=== PATIENT | male | born 1945 | race Caucasian/White ===

== ENCOUNTER 2018-04-04 11:45 | Inpatient (IN) | payer MEDICARE, MEDICAID ==
--- NOTE | 2018-04-04 12:13 | ED Physician Chart ---
ED Chief Complaint/HPI - Patient Information Date Seen:: 04/04/18 Time Seen:: 11:55 Chief Complaint:: scrotal swelling History of Present Illness:: Patient's had scrotal swelling for last 3 months. No nausea, vomiting, diarrhea , abdominal pain. Allergies:: Allergies Allergy/AdvReac Type Severity Reaction Status Date / Time No Known Allergies Allergy Verified 04/04/18 11:57 Vitals:: Vital Signs - 8 hr 04/04/18 11:57 Temp 98.1 F HR 82 RR 16 BP 130/96 O2 Sat % 95 Historian:: Patient, EMS Review:: Transfer documents Reviewed ED Review of Systems - Review of Systems General/Constitutional: No fever, No chills, No weight loss, No weakness, No diaphoresis, No edema, No loss of appetite Skin: No skin lesions, No rash, No bruising Head: No headache, No light-headedness Eyes: No loss of vision, No pain, No diplopia ENT: No earache, No nasal drainage, No sore throat, No tinnitus Neck: No neck pain, No swelling, No thyromegaly, No stiffness, No mass noted Cardio Vascular: No chest pain, No palpitations, No PND, No orthopnea, No edema Pulmonary: No SOB, No cough, No sputum, No wheezing GI: No nausea, No vomiting, No diarrhea, No pain, No melena, No hematochezia, No constipation, No hematemesis G/U: No dysuria, No frequency, No hematuria, Other (scrotal swelling) Musculoskeletal: No bone or joint pain, No back pain, No muscle pain Endocrine: No polyuria, No polydipsia Psychiatric: No prior psych history, No depression, No anxiety, No suicidal ideation Hematopoietic: No bruising, No lymphadenopathy Allergic/Immuno: No urticaria, No angioedema Neurological: No syncope, No focal symptoms, No weakness, No paresthesia, No headache, No seizure, No dizziness, No confusion, No vertigo ED Past Medical History - Past Medical History Past Medical History: Arthritis, Other (right hip pain; cellulitis left leg) Family History: Other (unavailable) Social History: Care Facility, Other (formerly smoked cigarettes in consumed alcohol) Surgical History: other (left knee and right hip) Psychiatricy History: None Medication: Reviewed Family Medical History - Family Member Mother History Unknown: Yes ED Physical Exam - Physical Examination General/Constitutional: Well-developed, well-nourished, Alert, No distress Head: Atraumatic Eyes: Lids, conjuctiva normal, PERRL, EOMI Skin: Nl inspection, No rash, No skin lesions, No ecchymosis, Well hydrated, No lymphadenopathy ENMT: External ears, nose nl, Nasal exam nl Other ENMT comments:: Edentulous Neck: Nontender, Full ROM w/o pain, No JVD, No nuchal rigidity, No bruit, No mass, No stridor Respiratory: Nl effort/Exclusion, Clear to Auscultation, No Wheeze/Rhonchi/Rales Cardio Vascular: RRR, No murmur, gallop, rubs, NL S1 S2 GI: No tenderness/rebounding/guarding, No organomegaly, No hernia, Normal BS's, Nondistended, No mass/bruits, No McBurney tenderness : No CVA tenderness Other comments:: Large incarcerated right inguinal hernia with intestine in right hemiscrotum Extremities: No tenderness or effusion, Full ROM, normal strength in all extremities, No edema, Normal digits & nails Other Extremities comments:: Long vertical scar anterior both knees Neuro/Psych: Alert/oriented, No focal deficits Misc: Normal back, No paraspinal tenderness ED Labs/Radiology/EKG Results - Lab Results Results: Laboratory Results - last 24 hr 04/04/18 04/04/18 04/04/18 12:28 12:28 12:28 WBC 4.8 RBC 4.78 Hgb 15.0 Hct 43.0 MCV 90.0 MCH 31.4 H MCHC Differential 34.9 RDW 13.5 Plt Count 144 L MPV 7.7 Neutrophils % 71.4 Lymphocytes % 16.2 L Monocytes % 10.1 H Eosinophils % 1.5 Basophils % 0.8 PT 11.6 H INR 1.11 PTT (Actin FS) 26.6 Sodium 129 L Potassium 4.0 Chloride 98 Carbon Dioxide 24.8 Anion Gap 10.2 BUN 14 Creatinine 0.5 L Est GFR ( Amer) > 60.0 Est GFR (Non-Af Amer) > 60.0 BUN/Creatinine Ratio 28.0 Glucose 104 Calcium 9.1 Urine Source Urine Color Urine Clarity Urine pH Ur Specific [place] Urine Protein Urine Glucose (UA) Urine Ketones Urine Blood Urine Nitrate Urine Bilirubin Urine Urobilinogen Ur Leukocyte Esterase Urine WBC Ur Epithelial Cells Amorphous Sediment Urine Bacteria 04/04/18 12:28 WBC RBC Hgb Hct MCV MCH MCHC Differential RDW Plt Count MPV Neutrophils % Lymphocytes % Monocytes % Eosinophils % Basophils % PT INR PTT (Actin FS) Sodium Potassium Chloride Carbon Dioxide Anion Gap BUN Creatinine Est GFR ( Amer) Est GFR (Non-Af Amer) BUN/Creatinine Ratio Glucose Calcium Urine Source RANDOM Urine Color YELLOW Urine Clarity CLEAR Urine pH 7.5 Ur Specific [place] 1.015 Urine Protein NEGATIVE Urine Glucose (UA) NEGATIVE Urine Ketones NEGATIVE Urine Blood NEGATIVE Urine Nitrate NEGATIVE Urine Bilirubin NEGATIVE Urine Urobilinogen 0.2 Ur Leukocyte Esterase NEGATIVE Urine WBC 0-2 Ur Epithelial Cells OCCASIONAL Amorphous Sediment FEW PHOSPHATES Urine Bacteria OCCASIONAL - Radiology Results Results: CXR showed calcification of the aortic arch and was otherwise normal. ED Septic Shock - . Is Septic Shock (SBP<90, OR Lactate>4 mmol\L) present?: No - <6hrs of presentation: Vital Signs: Vital Signs - 8 hr 04/04/18 11:57 Temp 98.1 F HR 82 RR 16 BP 130/96 O2 Sat % 95 ED Reassessment (Disposition) - Reassessment Reassessment Condition:: Unchanged - Diagnosis Diagnosis:: Incarcerated right inguinal hernia; arthritis - Patient Disposition Spoke to:: Pranav Guzman Admitting Medical Physician:: Pranav Guzman Condition at Disposition:: Stable, Unchanged
[2018-04-04 12:34] LABS: URINE MICROSCOPIC INDICATED? YES; URINE SOURCE RANDOM
[2018-04-04 12:37] LABS: URINE BILIRUBIN NEGATIVE (NEGATIVE); URINE BLOOD NEGATIVE (NEGATIVE); URINE GLUCOSE (UA) NEGATIVE (NEGATIVE); URINE KETONE NEGATIVE (NEGATIVE); URINE LEUKOCYTE ESTERASE NEGATIVE (NEGATIVE); URINE NITRATE NEGATIVE (NEGATIVE); URINE PH 7.5 (4.6 - 8.0); URINE PROTEIN NEGATIVE (NEGATIVE); URINE UROBILINOGEN 0.2 E.U./dL (0.2 - 1.0)
[2018-04-04 12:38] LABS: URINE CLARITY CLEAR (CLEAR); URINE COLOR YELLOW
[2018-04-04 12:42] LABS: % BASOPHILS 0.8 % (0.0-2.0); % EOSINOPHILS 1.5 % (0.0-5.0); % LYMPHOCYTES 16.2 % (20.0-50.0); % MONOCYTES 10.1 % (2.0-10.0); % NEUTROPHILS 71.4 % (40.0-80.0); EOSINOPHILE ABSOLUTE 0.1 Th/cmm (0.1-0.4); LYMPHOCYTE ABSOLUTE 0.8 Th/cmm (1.5-3.0); MEAN CORPUSCULAR HEMOGLOBIN 31.4 pg (27.0-31.0); MEAN CORPUSCULAR HGB CONC 34.9 pg (28.0-36.0); MEAN PLATELET VOLUME 7.7 fl; MONOCYTE ABSOLUTE 0.5 Th/cmm (0.3-1.0); NEUTROPHILE ABSOLUTE 3.4 Th/cmm (1.8-8.0); PLATELET COUNT 144 Th/cmm (150-400); RED BLOOD COUNT 4.78 Mil/cmm (3.80-5.80); RED CELL DISTRIBUTION WIDTH 13.5 % (11.5-20.0); WHITE BLOOD COUNT 4.8 Th/cmm (4.8-10.8)
[2018-04-04 12:49] LABS: INR 1.11 (0.5-1.4); PROTHROMBIN TIME (TEST) 11.6 SECONDS (9.5-11.5)
[2018-04-04 12:53] LABS: ANION GAP 10.2 (7.0-16.0); BUN - UREA NITROGEN 14 mg/dL (7-25); CALCIUM SERUM 9.1 mg/dL (8.6-10.3); CARBON DIOXIDE 24.8 mEq/L (21.0-31.0); CHLORIDE 98 mEq/L (98-107); CREATININE - SERUM 0.5 mg/dL (0.7-1.3); GFR AFRICAN-AMERICAN > 60.0 ml/min (>90); GFR NON AFRICAN-AMERICAN > 60.0 ml/min; GLUCOSE 104 mg/dL (70-105); SODIUM SERUM 129 mEq/L (136-145)
[2018-04-04 12:57] LABS: URINE BACTERIA OCCASIONAL /hpf (NONE SEEN); URINE EPITHELIAL CELLS OCCASIONAL /lpf (FEW); URINE WBC 0-2 /hpf (0-5)
[2018-04-04 12:58] LABS: URINE AMORPHOUS SEDIMENT FEW PHOSPHATES (NONE SEEN)
--- NOTE | 2018-04-04 13:18 | Diagnostic Imaging Report ---
CHEST X-RAY: AP view INDICATION: Chest pain, preop COMPARISON: None FINDINGS: Low lung volumes are seen with mild chronic lung changes. There is no focal consolidation or pleural effusions The heart is normal in size. Mildly tortuous aorta is noted with atherosclerosis. There may be a hiatal hernia. Degenerative changes of the spine are noted with scoliosis. IMPRESSION: Chronic lung changes with no focal consolidation identified Mildly tortuous aorta with atherosclerosis. Possible hiatal hernia. If indicated further testing may be performed.
[2018-04-04] MEDS ORDERED: Morphine Sulfate 4 mg/mL 1mL Syr IM PRN ×2 (14:30→14:32)
[2018-04-04] MEDS: D5-0.45NS 1,000 ML IV SCH (14:52)
[2018-04-04] MEDS ORDERED: Morphine Sulfate 4 mg/mL 1mL Syr IVP PRN ×2 (16:34)
[2018-04-04] MEDS: cefTRIAXone 1 GM in Sodium Chloride 0.9% 50 ML IV SCH (16:35)
--- NOTE | 2018-04-04 17:13 | General Progress Note ---
Subjective - Review of Systems Service Date: 04/04/18 Events since last encounter: consult dictated labs ok patient poor historian but appears to be oriented has large right scrotal hernia which is minimally tender, no strangulation has no family Plan: repair of hernia with mesh Objective - Results Result Diagrams: 04/04/18 12:28 04/04/18 12:28 Recent Labs: Laboratory Last Values WBC 4.8 Th/cmm (4.8-10.8) 04/04/18 12:28 RBC 4.78 Mil/cmm (3.80-5.80) 04/04/18 12:28 Hgb 15.0 gm/dL (12-16) 04/04/18 12:28 Hct 43.0 % (41.0-60) 04/04/18 12:28 MCV 90.0 fl (80-99) 04/04/18 12:28 MCH 31.4 pg (27.0-31.0) H 04/04/18 12:28 MCHC Differential 34.9 pg (28.0-36.0) 04/04/18 12:28 RDW 13.5 % (11.5-20.0) 04/04/18 12:28 Plt Count 144 Th/cmm (150-400) L 04/04/18 12:28 MPV 7.7 fl 04/04/18 12:28 Neutrophils % 71.4 % (40.0-80.0) 04/04/18 12:28 Lymphocytes % 16.2 % (20.0-50.0) L 04/04/18 12:28 Monocytes % 10.1 % (2.0-10.0) H 04/04/18 12:28 Eosinophils % 1.5 % (0.0-5.0) 04/04/18 12:28 Basophils % 0.8 % (0.0-2.0) 04/04/18 12:28 PT 11.6 SECONDS (9.5-11.5) H 04/04/18 12:28 INR 1.11 (0.5-1.4) 04/04/18 12:28 PTT (Actin FS) 26.6 SECONDS (26.0-38.0) 04/04/18 12:28 Sodium 129 mEq/L (136-145) L 04/04/18 12:28 Potassium 4.0 mEq/L (3.5-5.1) 04/04/18 12:28 Chloride 98 mEq/L (98-107) 04/04/18 12:28 Carbon Dioxide 24.8 mEq/L (21.0-31.0) 04/04/18 12:28 Anion Gap 10.2 (7.0-16.0) 04/04/18 12:28 BUN 14 mg/dL (7-25) 04/04/18 12:28 Creatinine 0.5 mg/dL (0.7-1.3) L 04/04/18 12:28 Est GFR ( Amer) > 60.0 ml/min (>90) 04/04/18 12:28 Est GFR (Non-Af Amer) > 60.0 ml/min 04/04/18 12:28 BUN/Creatinine Ratio 28.0 04/04/18 12:28 Glucose 104 mg/dL (70-105) 04/04/18 12:28 Calcium 9.1 mg/dL (8.6-10.3) 04/04/18 12:28 Urine Source RANDOM 04/04/18 12:28 Urine Color YELLOW 04/04/18 12:28 Urine Clarity CLEAR (CLEAR) 04/04/18 12:28 Urine pH 7.5 (4.6 - 8.0) 04/04/18 12:28 Ur Specific [place] 1.015 (1.005-1.030) 04/04/18 12:28 Urine Protein NEGATIVE mg/dL (NEGATIVE) 04/04/18 12:28 Urine Glucose (UA) NEGATIVE mg/dL (NEGATIVE) 04/04/18 12:28 Urine Ketones NEGATIVE mg/dL (NEGATIVE) 04/04/18 12:28 Urine Blood NEGATIVE (NEGATIVE) 04/04/18 12:28 Urine Nitrate NEGATIVE (NEGATIVE) 04/04/18 12:28 Urine Bilirubin NEGATIVE (NEGATIVE) 04/04/18 12:28 Urine Urobilinogen 0.2 E.U./dL (0.2 - 1.0) 04/04/18 12:28 Ur Leukocyte Esterase NEGATIVE (NEGATIVE) 04/04/18 12:28 Urine WBC 0-2 /hpf (0-5) 04/04/18 12:28 Ur Epithelial Cells OCCASIONAL /lpf (FEW) 04/04/18 12:28 Amorphous Sediment FEW PHOSPHATES (NONE SEEN) 04/04/18 12:28 Urine Bacteria OCCASIONAL /hpf (NONE SEEN) 04/04/18 12:28 - Physical Exam Vitals and I&O: Vital Signs Temp 98.0 F 04/04/18 16:25 Pulse 70 04/04/18 16:25 Resp 18 04/04/18 16:25 BP 138/74 04/04/18 16:25 Pulse Ox 98 04/04/18 16:25 Active Medications: Current Medications Ceftriaxone Sodium 1 gm/ (Sodium Chloride) 50 mls @ 100 mls/hr IV Q24HR [facility] Stop: 06/03/18 16:59 Last Admin: 04/04/18 16:35 Dose: 100 mls/hr Dextrose/Sodium Chloride (D5-0.45ns) 1,000 mls @ 75 mls/hr IV .[id number] [facility] Stop: 06/03/18 14:59 Last Admin: 04/04/18 14:52 Dose: 75 mls/hr Morphine Sulfate (Morphine) 1 mg IVP Q3HR PRN PRN Reason: Pain (Moderate) Stop: 06/03/18 14:29 Morphine Sulfate (Morphine) 2 mg IVP Q3HR PRN PRN Reason: Pain (Severe) Stop: 06/03/18 14:31 Pneumococcal Polyvalent Vaccine (Pneumovax) 0.5 ml IM .ONCE ONE Stop: 04/05/18 09:01
--- NOTE | 2018-04-04 17:19 | History & Physical ---
ADMIT DATE: 04/04/2018 HISTORY OF PRESENT ILLNESS: The patient is well known to me. The patient is at [facility]. Apparently, the patient has been swelling and increasing swelling in the last few days, in the right scrotal swelling. The patient has no nausea, no vomiting. Complains of abdominal pain. The patient has no fever, no chills, no rigors, no dizziness, no bony pain. PAST MEDICAL HISTORY: As noted before, the patient known to have history of COPD, history of right hip pain, history of arthritis, history of cellulitis of the left leg and also complaining of swelling of his scrotum. PHYSICAL EXAMINATION: GENERAL: Alert, oriented male patient. VITAL SIGNS: As noted in chart. HEAD: Normal. ENT: Normal. LUNGS: Bilaterally clear. CARDIOVASCULAR SYSTEM: S1, S2 heard. ABDOMEN: Soft. Bowel sounds are present. Large scrotal mass was noted, probably irreducible and incarcerated hernia. LABORATORY DATA: The patient's white count was 4.8, hemoglobin 15, crit was okay. DIAGNOSES: Incarcerated right inguinal hernia, arthritis, history of chronic obstructive pulmonary disease. PLAN: The patient is being admitted. I will call surgeon see the patient. I will follow the patient. JOB# [id number] TAMMY
--- NOTE | 2018-04-04 18:31 | Consultation ---
DATE OF CONSULTATION: 04/04/2018 SURGICAL CONSULTATION REFERRING PHYSICIAN: Dr. Guzman. REASON FOR CONSULTATION: Scrotal hernia, right side. Thank you for referring this patient to me. HISTORY OF PRESENT ILLNESS: This is a 72-year-old male who comes in because of pain and swelling of the right scrotum. He denied nausea, vomiting, or diarrhea. PAST MEDICAL HISTORY: Difficult to obtain from this patient who appears to be oriented, but does not know much about his past history other than arthritis. He does not give any family member that might add additional information. LABORATORY STUDIES: Show CBC to be essentially normal with a slightly low platelet count 144,000. BUN and creatinine are normal. Urinalysis is also normal. Chest x-ray is unremarkable. PHYSICAL EXAMINATION: Shows a large right scrotal hernia, which is minimally tender. No strangulation is noted. The patient was informed of the need to do surgery to prevent strangulation of the hernia. He has agreed to this. We will schedule for surgery and wait other input from other physicians. JOB# [id number]
[2018-04-04] MEDS ORDERED: Non-Formulary Item 1 EA (Acetaminophen [Pain Reliever] 1 TAB) PO PRN (20:18)
[2018-04-04] MEDS ORDERED: Fleet Enema 135 mL RC PRN (20:18)
[2018-04-04] MEDS ORDERED: Magnesium Hydroxide (MOM) 30 mL UDC PO PRN (20:18)
[2018-04-04] MEDS ORDERED: Maalox 30 mL Cup PO PRN (20:18)
[2018-04-05] MEDS: D5-0.45NS 1,000 ML IV SCH (04:20)
[2018-04-05 06:50] LABS: % BASOPHILS 0.4 % (0.0-2.0); % EOSINOPHILS 3.4 % (0.0-5.0); % LYMPHOCYTES 28.9 % (20.0-50.0); % MONOCYTES 12.4 % (2.0-10.0); % NEUTROPHILS 54.9 % (40.0-80.0); EOSINOPHILE ABSOLUTE 0.1 Th/cmm (0.1-0.4); HEMATOCRIT 44.1 % (41.0-60); LYMPHOCYTE ABSOLUTE 1.3 Th/cmm (1.5-3.0); MEAN CELL VOLUME 90.7 fl (80-99); MEAN CORPUSCULAR HEMOGLOBIN 30.9 pg (27.0-31.0); MEAN CORPUSCULAR HGB CONC 34.1 pg (28.0-36.0); MEAN PLATELET VOLUME 7.9 fl; MONOCYTE ABSOLUTE 0.5 Th/cmm (0.3-1.0); NEUTROPHILE ABSOLUTE 2.5 Th/cmm (1.8-8.0); PLATELET COUNT 140 Th/cmm (150-400); RED BLOOD COUNT 4.86 Mil/cmm (3.80-5.80); RED CELL DISTRIBUTION WIDTH 12.8 % (11.5-20.0); WHITE BLOOD COUNT 4.4 Th/cmm (4.8-10.8)
[2018-04-05 07:19] LABS: ALB/GLOB RATIO 1.5 (1.0-1.8); ALBUMIN 3.6 gm/dL (4.2-5.5); ALKALINE PHOSPHATASE 69 U/L (34-104); ANION GAP 11.3 (7.0-16.0); BILIRUBIN,TOTAL 0.7 mg/dL (0.3-1.0); BUN - UREA NITROGEN 12 mg/dL (7-25); CARBON DIOXIDE 22.6 mEq/L (21.0-31.0); CHLORIDE 101 mEq/L (98-107); CREATININE - SERUM 0.6 mg/dL (0.7-1.3); GFR AFRICAN-AMERICAN > 60.0 ml/min (>90); GFR NON AFRICAN-AMERICAN > 60.0 ml/min; GLUCOSE 91 mg/dL (70-105); POTASSIUM SERUM 3.9 mEq/L (3.5-5.1); SGOT 20 U/L (13-39); SGPT/ALT 10 U/L (7-52); SODIUM SERUM 131 mEq/L (136-145)
[2018-04-05] MEDS ORDERED: Pneumococcal Vaccine 0.5 mL Vial IM ONE (09:00)
[2018-04-05] MEDS ORDERED: Non-Formulary Item 1 EA (Amino Acids/Protein Hydrolys [Pro-Stat Max Liquid] 30 ML) PO SCH (09:00)
[2018-04-05] MEDS ORDERED: fentaNYL Citrate 100 mcg/2mL Vial ONE (09:10)
[2018-04-05] MEDS ORDERED: Neostigmine 10mg/10mL Vial ONE (09:11)
[2018-04-05] MEDS ORDERED: Propofol **SURGERY USE ONLY** 20 ML IV ONE (09:11)
[2018-04-05] MEDS ORDERED: Probiotic Screen MC PRN (09:30)
[2018-04-05] MEDS ORDERED: BUPIVACAINE LIPOSOMAL INJ ONE (09:43)
--- NOTE | 2018-04-05 12:35 | Operative Report ---
DATE OF SURGERY: 04/05/2018 PREOPERATIVE DIAGNOSES: 1. Incarcerated right inguinal hernia (indirect). 2. Chronic obstructive pulmonary disease. POSTOPERATIVE DIAGNOSES: 1. Incarcerated right inguinal hernia (indirect). 2. Chronic obstructive pulmonary disease. OPERATION DONE: 1. Repair of right inguinal hernia with mesh and plug. 2. Injection of Exparel. SURGEON: Giuliano Toscano MD ANESTHESIA: General. ANESTHESIOLOGIST: Dr. Sanders. INDICATIONS FOR SURGERY: Incarcerated right inguinal hernia, going all the way to the scrotum. Informed consent discussed with the patient regarding possible complications of strangulation and benefits of the surgery, recurrence as possibility. OPERATIVE FINDINGS: Loops of small bowel on the cecum was in the hernia sac. Sac was excised and repair was done with large plug (PerFix) and mesh. ESTIMATED BLOOD LOSS: 5 mL. DESCRIPTION OF PROCEDURE: The patient was given general anesthesia. The abdomen and scrotum was prepped with Betadine and draped. An incision was made along the skin line in the low inguinal area. Bleeders were coagulated. The hernia sac was identified and opened. Large portion of the small bowel and cecum was seen and reduced back into the abdominal cavity. A large PerFix plug was sutured in place in 4 quadrants and the mesh was placed around the cord and sutured in place to the fascia utilizing interrupted sutures of #1 Nurolon. Following satisfactory hemostasis, injection of Exparel was done. Subcutaneous tissues closed with 2-0 Vicryl and the skin was closed with 4-0 Vicryl. Sterile dressing was placed over this. The patient tolerated the procedure well. [facility]# [id number]
--- NOTE | 2018-04-05 16:02 | General Progress Note ---
Objective - Results Result Diagrams: 04/05/18 05:45 04/05/18 05:45 Recent Labs: Laboratory Last Values WBC 4.4 Th/cmm (4.8-10.8) L 04/05/18 05:45 RBC 4.86 Mil/cmm (3.80-5.80) 04/05/18 05:45 Hgb 15.0 gm/dL (12-16) 04/05/18 05:45 Hct 44.1 % (41.0-60) 04/05/18 05:45 MCV 90.7 fl (80-99) 04/05/18 05:45 MCH 30.9 pg (27.0-31.0) 04/05/18 05:45 MCHC Differential 34.1 pg (28.0-36.0) 04/05/18 05:45 RDW 12.8 % (11.5-20.0) 04/05/18 05:45 Plt Count 140 Th/cmm (150-400) L 04/05/18 05:45 MPV 7.9 fl 04/05/18 05:45 Neutrophils % 54.9 % (40.0-80.0) 04/05/18 05:45 Lymphocytes % 28.9 % (20.0-50.0) 04/05/18 05:45 Monocytes % 12.4 % (2.0-10.0) H 04/05/18 05:45 Eosinophils % 3.4 % (0.0-5.0) 04/05/18 05:45 Basophils % 0.4 % (0.0-2.0) 04/05/18 05:45 PT 11.6 SECONDS (9.5-11.5) H 04/04/18 12:28 INR 1.11 (0.5-1.4) 04/04/18 12:28 PTT (Actin FS) 26.6 SECONDS (26.0-38.0) 04/04/18 12:28 Sodium 131 mEq/L (136-145) L 04/05/18 05:45 Potassium 3.9 mEq/L (3.5-5.1) 04/05/18 05:45 Chloride 101 mEq/L (98-107) 04/05/18 05:45 Carbon Dioxide 22.6 mEq/L (21.0-31.0) 04/05/18 05:45 Anion Gap 11.3 (7.0-16.0) 04/05/18 05:45 BUN 12 mg/dL (7-25) 04/05/18 05:45 Creatinine 0.6 mg/dL (0.7-1.3) L 04/05/18 05:45 Est GFR ( Amer) > 60.0 ml/min (>90) 04/05/18 05:45 Est GFR (Non-Af Amer) > 60.0 ml/min 04/05/18 05:45 BUN/Creatinine Ratio 20.0 04/05/18 05:45 Glucose 91 mg/dL (70-105) 04/05/18 05:45 POC Glucose 97 MG/DL (70 - 105) 04/05/18 06:05 Calcium 9.0 mg/dL (8.6-10.3) 04/05/18 05:45 Total Bilirubin 0.7 mg/dL (0.3-1.0) 04/05/18 05:45 AST 20 U/L (13-39) 04/05/18 05:45 ALT 10 U/L (7-52) 04/05/18 05:45 Alkaline Phosphatase 69 U/L (34-104) 04/05/18 05:45 Total Protein 6.0 gm/dL (6.0-8.3) 04/05/18 05:45 Albumin 3.6 gm/dL (4.2-5.5) L 04/05/18 05:45 Globulin 2.4 gm/dL 04/05/18 05:45 Albumin/Globulin Ratio 1.5 (1.0-1.8) 04/05/18 05:45 Urine Source RANDOM 04/04/18 12:28 Urine Color YELLOW 04/04/18 12:28 Urine Clarity CLEAR (CLEAR) 04/04/18 12:28 Urine pH 7.5 (4.6 - 8.0) 04/04/18 12:28 Ur Specific [place] 1.015 (1.005-1.030) 04/04/18 12:28 Urine Protein NEGATIVE mg/dL (NEGATIVE) 04/04/18 12:28 Urine Glucose (UA) NEGATIVE mg/dL (NEGATIVE) 04/04/18 12:28 Urine Ketones NEGATIVE mg/dL (NEGATIVE) 04/04/18 12:28 Urine Blood NEGATIVE (NEGATIVE) 04/04/18 12:28 Urine Nitrate NEGATIVE (NEGATIVE) 04/04/18 12:28 Urine Bilirubin NEGATIVE (NEGATIVE) 04/04/18 12:28 Urine Urobilinogen 0.2 E.U./dL (0.2 - 1.0) 04/04/18 12:28 Ur Leukocyte Esterase NEGATIVE (NEGATIVE) 04/04/18 12:28 Urine WBC 0-2 /hpf (0-5) 04/04/18 12:28 Ur Epithelial Cells OCCASIONAL /lpf (FEW) 04/04/18 12:28 Amorphous Sediment FEW PHOSPHATES (NONE SEEN) 04/04/18 12:28 Urine Bacteria OCCASIONAL /hpf (NONE SEEN) 04/04/18 12:28 - Physical Exam Vitals and I&O: Vital Signs Temp 97.5 F 04/05/18 12:00 Pulse 65 04/05/18 12:00 Resp 18 04/05/18 12:00 BP 132/71 04/05/18 12:00 Pulse Ox 97 04/05/18 12:00 Intake & Output 04/04/18 04/05/18 04/05/18 18:59 06:59 18:59 Intake Total 250 1300 Balance 250 1300 Weight (lbs) 65.317 kg 65.317 kg 65.317 kg Intake: Intake, IV Amount 50 1000 D5-0.45NS 1,000 ml @ 75 1000 mls/hr IV .[id number] [facility] Rx #:[id number] cefTRIAXone 1 gm In 50 Sodium Chloride 0.9% 50 ml @ 100 mls/hr IV Q24HR [facility] Rx#:[id number] Oral 200 300 Other: # Voids 2 2 # Bowel Movements 0 Weight Source Bedscale Bedscale Estimated Active Medications: Current Medications Acetaminophen (Tylenol Extra Strength) 1,000 mg PO Q4H PRN PRN Reason: Pain (Moderate) Stop: 06/03/18 20:17 Acetaminophen/Hydrocodone Bitart ([place] 5mg/325mg) 1 tab PO Q6H PRN PRN Reason: Pain (Severe) Stop: 06/03/18 20:17 Al Hydrox/Mg Hydrox/Simethicone (Maalox) 30 ml PO Q6H PRN PRN Reason: Indigestion Stop: 06/03/18 20:17 Aspirin (Ecotrin) 81 mg PO DAILY [facility] Stop: 06/04/18 08:59 Last Admin: 04/05/18 09:39 Dose: Not Given Bisacodyl (Dulcolax 10 Mg Supp) 10 mg RC DAILY PRN PRN Reason: Constipation Stop: 06/03/18 20:17 Docusate Sodium (Colace) 100 mg PO DAILY [facility] Stop: 06/04/18 08:59 Last Admin: 04/05/18 09:39 Dose: Not Given Ceftriaxone Sodium 1 gm/ (Sodium Chloride) 50 mls @ 100 mls/hr IV Q24HR [facility] Stop: 06/03/18 16:59 Last Infusion: 04/04/18 17:05 Dose: Infused Dextrose/Sodium Chloride (D5-0.45ns) 1,000 mls @ 75 mls/hr IV .[id number] [facility] Stop: 06/03/18 14:59 Last Admin: 04/05/18 04:20 Dose: 75 mls/hr Lactobacillus Rhamnosus (Culturelle 15b) 1 each PO DAILY [facility] Stop: 06/05/18 08:59 Lorazepam (Ativan) 1 mg IVP Q4HR PRN; Protocol PRN Reason: Anxiety Stop: 06/03/18 20:10 Last Admin: 04/04/18 23:25 Dose: 1 mg Magnesium Hydroxide (Milk Of Magnesia) 30 ml PO HS PRN PRN Reason: Constipation Stop: 06/03/18 20:17 Miscellaneous (Probiotic Screen) 1 ea MC PRN PRN PRN Reason: PROTOCOL Stop: 06/04/18 09:29 Morphine Sulfate (Morphine) 1 mg IVP Q3HR PRN PRN Reason: Pain (Moderate) Stop: 06/03/18 14:29 Last Admin: 04/04/18 17:42 Dose: 1 mg Morphine Sulfate (Morphine) 2 mg IVP Q3HR PRN PRN Reason: Pain (Severe) Stop: 06/03/18 14:31 Senna (Senna) 8.6 mg PO HS [facility] Stop: 06/03/18 20:59 Last Admin: 04/04/18 21:29 Dose: 8.6 mg Sodium Phosphate (Fleet Enema) 135 ml RC Q2D PRN PRN Reason: Constipation Stop: 06/03/18 20:17 Zolpidem Tartrate (Ambien) 5 mg PO HS PRN PRN Reason: Insomnia Stop: 06/03/18 20:17
[2018-04-06] MEDS: Lactobacillus Rhamnosus GG 15 Billion CFU CAP.SPRINK PO SCH (09:40)
--- NOTE | 2018-04-06 21:38 | General Progress Note ---
Subjective - Review of Systems Service Date: 04/06/18 Subjective: afebrile nad Objective - Results Result Diagrams: 04/05/18 05:45 04/05/18 05:45 Recent Labs: Laboratory Last Values WBC 4.4 Th/cmm (4.8-10.8) L 04/05/18 05:45 RBC 4.86 Mil/cmm (3.80-5.80) 04/05/18 05:45 Hgb 15.0 gm/dL (12-16) 04/05/18 05:45 Hct 44.1 % (41.0-60) 04/05/18 05:45 MCV 90.7 fl (80-99) 04/05/18 05:45 MCH 30.9 pg (27.0-31.0) 04/05/18 05:45 MCHC Differential 34.1 pg (28.0-36.0) 04/05/18 05:45 RDW 12.8 % (11.5-20.0) 04/05/18 05:45 Plt Count 140 Th/cmm (150-400) L 04/05/18 05:45 MPV 7.9 fl 04/05/18 05:45 Neutrophils % 54.9 % (40.0-80.0) 04/05/18 05:45 Lymphocytes % 28.9 % (20.0-50.0) 04/05/18 05:45 Monocytes % 12.4 % (2.0-10.0) H 04/05/18 05:45 Eosinophils % 3.4 % (0.0-5.0) 04/05/18 05:45 Basophils % 0.4 % (0.0-2.0) 04/05/18 05:45 PT 11.6 SECONDS (9.5-11.5) H 04/04/18 12:28 INR 1.11 (0.5-1.4) 04/04/18 12:28 PTT (Actin FS) 26.6 SECONDS (26.0-38.0) 04/04/18 12:28 Sodium 131 mEq/L (136-145) L 04/05/18 05:45 Potassium 3.9 mEq/L (3.5-5.1) 04/05/18 05:45 Chloride 101 mEq/L (98-107) 04/05/18 05:45 Carbon Dioxide 22.6 mEq/L (21.0-31.0) 04/05/18 05:45 Anion Gap 11.3 (7.0-16.0) 04/05/18 05:45 BUN 12 mg/dL (7-25) 04/05/18 05:45 Creatinine 0.6 mg/dL (0.7-1.3) L 04/05/18 05:45 Est GFR ( Amer) > 60.0 ml/min (>90) 04/05/18 05:45 Est GFR (Non-Af Amer) > 60.0 ml/min 04/05/18 05:45 BUN/Creatinine Ratio 20.0 04/05/18 05:45 Glucose 91 mg/dL (70-105) 04/05/18 05:45 POC Glucose 97 MG/DL (70 - 105) 04/05/18 06:05 Calcium 9.0 mg/dL (8.6-10.3) 04/05/18 05:45 Total Bilirubin 0.7 mg/dL (0.3-1.0) 04/05/18 05:45 AST 20 U/L (13-39) 04/05/18 05:45 ALT 10 U/L (7-52) 04/05/18 05:45 Alkaline Phosphatase 69 U/L (34-104) 04/05/18 05:45 Total Protein 6.0 gm/dL (6.0-8.3) 04/05/18 05:45 Albumin 3.6 gm/dL (4.2-5.5) L 04/05/18 05:45 Globulin 2.4 gm/dL 04/05/18 05:45 Albumin/Globulin Ratio 1.5 (1.0-1.8) 04/05/18 05:45 Urine Source RANDOM 04/04/18 12:28 Urine Color YELLOW 04/04/18 12:28 Urine Clarity CLEAR (CLEAR) 04/04/18 12:28 Urine pH 7.5 (4.6 - 8.0) 04/04/18 12:28 Ur Specific [place] 1.015 (1.005-1.030) 04/04/18 12:28 Urine Protein NEGATIVE mg/dL (NEGATIVE) 04/04/18 12:28 Urine Glucose (UA) NEGATIVE mg/dL (NEGATIVE) 04/04/18 12:28 Urine Ketones NEGATIVE mg/dL (NEGATIVE) 04/04/18 12:28 Urine Blood NEGATIVE (NEGATIVE) 04/04/18 12:28 Urine Nitrate NEGATIVE (NEGATIVE) 04/04/18 12:28 Urine Bilirubin NEGATIVE (NEGATIVE) 04/04/18 12:28 Urine Urobilinogen 0.2 E.U./dL (0.2 - 1.0) 04/04/18 12:28 Ur Leukocyte Esterase NEGATIVE (NEGATIVE) 04/04/18 12:28 Urine WBC 0-2 /hpf (0-5) 04/04/18 12:28 Ur Epithelial Cells OCCASIONAL /lpf (FEW) 04/04/18 12:28 Amorphous Sediment FEW PHOSPHATES (NONE SEEN) 04/04/18 12:28 Urine Bacteria OCCASIONAL /hpf (NONE SEEN) 04/04/18 12:28 - Physical Exam Vitals and I&O: Vital Signs Temp 98.9 F 04/06/18 20:00 Pulse 93 04/06/18 20:00 Resp 18 04/06/18 20:00 BP 123/93 04/06/18 20:00 Pulse Ox 97 04/06/18 20:00 Intake & Output 04/06/18 04/06/18 04/07/18 06:59 18:59 06:59 Intake Total 120 500 Balance 120 500 Weight (lbs) 65.317 kg 67.132 kg Intake: Oral 120 500 Other: # Voids 2 5 # Bowel Movements 0 Weight Source Estimated Bedscale Active Medications: Current Medications Acetaminophen (Tylenol Extra Strength) 1,000 mg PO Q4H PRN PRN Reason: Pain (Moderate) Stop: 06/03/18 20:17 Acetaminophen/Hydrocodone Bitart ([place] 5mg/325mg) 1 tab PO Q6H PRN PRN Reason: Pain (Severe) Stop: 06/03/18 20:17 Al Hydrox/Mg Hydrox/Simethicone (Maalox) 30 ml PO Q6H PRN PRN Reason: Indigestion Stop: 06/03/18 20:17 Aspirin (Ecotrin) 81 mg PO DAILY [facility] Stop: 06/04/18 08:59 Last Admin: 04/06/18 09:39 Dose: 81 mg Bisacodyl (Dulcolax 10 Mg Supp) 10 mg RC DAILY PRN PRN Reason: Constipation Stop: 06/03/18 20:17 Docusate Sodium (Colace) 100 mg PO DAILY [facility] Stop: 06/04/18 08:59 Last Admin: 04/06/18 09:40 Dose: 100 mg Ceftriaxone Sodium 1 gm/ (Sodium Chloride) 50 mls @ 100 mls/hr IV Q24HR [facility] Stop: 06/03/18 16:59 Last Infusion: 04/04/18 17:05 Dose: Infused Dextrose/Sodium Chloride (D5-0.45ns) 1,000 mls @ 75 mls/hr IV .[id number] [facility] Stop: 06/03/18 14:59 Last Admin: 04/05/18 04:20 Dose: 75 mls/hr Lactobacillus Rhamnosus (Culturelle 15b) 1 each PO DAILY [facility] Stop: 06/05/18 08:59 Last Admin: 04/06/18 09:40 Dose: 1 each Lorazepam (Ativan) 1 mg IVP Q4HR PRN; Protocol PRN Reason: Anxiety Stop: 06/03/18 20:10 Last Admin: 04/06/18 00:48 Dose: 1 mg Magnesium Hydroxide (Milk Of Magnesia) 30 ml PO HS PRN PRN Reason: Constipation Stop: 06/03/18 20:17 Miscellaneous (Probiotic Screen) 1 ea MC PRN PRN PRN Reason: PROTOCOL Stop: 06/04/18 09:29 Morphine Sulfate (Morphine) 1 mg IVP Q3HR PRN PRN Reason: Pain (Moderate) Stop: 06/03/18 14:29 Last Admin: 04/04/18 17:42 Dose: 1 mg Morphine Sulfate (Morphine) 2 mg IVP Q3HR PRN PRN Reason: Pain (Severe) Stop: 06/03/18 14:31 Last Admin: 04/06/18 21:23 Dose: 2 mg Senna (Senna) 8.6 mg PO HS EBER Stop: 06/03/18 20:59 Last Admin: 04/06/18 21:07 Dose: 8.6 mg Sodium Phosphate (Fleet Enema) 135 ml RC Q2D PRN PRN Reason: Constipation Stop: 06/03/18 20:17 Zolpidem Tartrate (Ambien) 5 mg PO HS PRN PRN Reason: Insomnia Stop: 06/03/18 20:17 General: No acute distress HEENT: Atraumatic Neck: Supple Cardiovascular: Regular rate Lungs: Clear to auscultation Abdomen: Bowel sounds - Procedures Procedures: Procedures Procedure Code Date SUPPLEMENT R INGUINAL REGION WITH SYNTH SUB, OPEN APPROACH [id number] 04/04/18 Assessment/Plan - Assessment Assessment: incarcerated right inguinal hernia arthritis copd - Plan Plan: cpm
[2018-04-07] MEDS: Lactobacillus Rhamnosus GG 15 Billion CFU CAP.SPRINK PO SCH (08:33)
--- NOTE | 2018-04-07 13:07 | General Progress Note ---
Subjective - Review of Systems Service Date: 04/07/18 Events since last encounter: incision clean and healing well very confused Objective - Results Result Diagrams: 04/05/18 05:45 04/05/18 05:45 Recent Labs: Laboratory Last Values WBC 4.4 Th/cmm (4.8-10.8) L 04/05/18 05:45 RBC 4.86 Mil/cmm (3.80-5.80) 04/05/18 05:45 Hgb 15.0 gm/dL (12-16) 04/05/18 05:45 Hct 44.1 % (41.0-60) 04/05/18 05:45 MCV 90.7 fl (80-99) 04/05/18 05:45 MCH 30.9 pg (27.0-31.0) 04/05/18 05:45 MCHC Differential 34.1 pg (28.0-36.0) 04/05/18 05:45 RDW 12.8 % (11.5-20.0) 04/05/18 05:45 Plt Count 140 Th/cmm (150-400) L 04/05/18 05:45 MPV 7.9 fl 04/05/18 05:45 Neutrophils % 54.9 % (40.0-80.0) 04/05/18 05:45 Lymphocytes % 28.9 % (20.0-50.0) 04/05/18 05:45 Monocytes % 12.4 % (2.0-10.0) H 04/05/18 05:45 Eosinophils % 3.4 % (0.0-5.0) 04/05/18 05:45 Basophils % 0.4 % (0.0-2.0) 04/05/18 05:45 PT 11.6 SECONDS (9.5-11.5) H 04/04/18 12:28 INR 1.11 (0.5-1.4) 04/04/18 12:28 PTT (Actin FS) 26.6 SECONDS (26.0-38.0) 04/04/18 12:28 Sodium 131 mEq/L (136-145) L 04/05/18 05:45 Potassium 3.9 mEq/L (3.5-5.1) 04/05/18 05:45 Chloride 101 mEq/L (98-107) 04/05/18 05:45 Carbon Dioxide 22.6 mEq/L (21.0-31.0) 04/05/18 05:45 Anion Gap 11.3 (7.0-16.0) 04/05/18 05:45 BUN 12 mg/dL (7-25) 04/05/18 05:45 Creatinine 0.6 mg/dL (0.7-1.3) L 04/05/18 05:45 Est GFR ( Amer) > 60.0 ml/min (>90) 04/05/18 05:45 Est GFR (Non-Af Amer) > 60.0 ml/min 04/05/18 05:45 BUN/Creatinine Ratio 20.0 04/05/18 05:45 Glucose 91 mg/dL (70-105) 04/05/18 05:45 POC Glucose 97 MG/DL (70 - 105) 04/05/18 06:05 Calcium 9.0 mg/dL (8.6-10.3) 04/05/18 05:45 Total Bilirubin 0.7 mg/dL (0.3-1.0) 04/05/18 05:45 AST 20 U/L (13-39) 04/05/18 05:45 ALT 10 U/L (7-52) 04/05/18 05:45 Alkaline Phosphatase 69 U/L (34-104) 04/05/18 05:45 Total Protein 6.0 gm/dL (6.0-8.3) 04/05/18 05:45 Albumin 3.6 gm/dL (4.2-5.5) L 04/05/18 05:45 Globulin 2.4 gm/dL 04/05/18 05:45 Albumin/Globulin Ratio 1.5 (1.0-1.8) 04/05/18 05:45 Urine Source RANDOM 04/04/18 12:28 Urine Color YELLOW 04/04/18 12:28 Urine Clarity CLEAR (CLEAR) 04/04/18 12:28 Urine pH 7.5 (4.6 - 8.0) 04/04/18 12:28 Ur Specific [place] 1.015 (1.005-1.030) 04/04/18 12:28 Urine Protein NEGATIVE mg/dL (NEGATIVE) 04/04/18 12:28 Urine Glucose (UA) NEGATIVE mg/dL (NEGATIVE) 04/04/18 12:28 Urine Ketones NEGATIVE mg/dL (NEGATIVE) 04/04/18 12:28 Urine Blood NEGATIVE (NEGATIVE) 04/04/18 12:28 Urine Nitrate NEGATIVE (NEGATIVE) 04/04/18 12:28 Urine Bilirubin NEGATIVE (NEGATIVE) 04/04/18 12:28 Urine Urobilinogen 0.2 E.U./dL (0.2 - 1.0) 04/04/18 12:28 Ur Leukocyte Esterase NEGATIVE (NEGATIVE) 04/04/18 12:28 Urine WBC 0-2 /hpf (0-5) 04/04/18 12:28 Ur Epithelial Cells OCCASIONAL /lpf (FEW) 04/04/18 12:28 Amorphous Sediment FEW PHOSPHATES (NONE SEEN) 04/04/18 12:28 Urine Bacteria OCCASIONAL /hpf (NONE SEEN) 04/04/18 12:28 - Physical Exam Vitals and I&O: Vital Signs Temp 98.0 F 04/07/18 12:00 Pulse 104 04/07/18 12:00 Resp 18 04/07/18 12:00 BP 121/69 04/07/18 12:00 Pulse Ox 96 04/07/18 12:00 Intake & Output 04/06/18 04/07/18 04/07/18 18:59 06:59 18:59 Intake Total 500 250 Balance 500 250 Weight (lbs) 67.132 kg 67.132 kg 65.771 kg Intake: Oral 500 250 Other: # Voids 5 3 # Bowel Movements 0 Weight Source Bedscale Bedscale Estimated Active Medications: Current Medications Acetaminophen (Tylenol Extra Strength) 1,000 mg PO Q4H PRN PRN Reason: Pain (Moderate) Stop: 06/03/18 20:17 Acetaminophen/Hydrocodone Bitart ([place] 5mg/325mg) 1 tab PO Q6H PRN PRN Reason: Pain (Severe) Stop: 06/03/18 20:17 Al Hydrox/Mg Hydrox/Simethicone (Maalox) 30 ml PO Q6H PRN PRN Reason: Indigestion Stop: 06/03/18 20:17 Aspirin (Ecotrin) 81 mg PO DAILY [facility] Stop: 06/04/18 08:59 Last Admin: 04/07/18 08:33 Dose: 81 mg Bisacodyl (Dulcolax 10 Mg Supp) 10 mg RC DAILY PRN PRN Reason: Constipation Stop: 06/03/18 20:17 Docusate Sodium (Colace) 100 mg PO DAILY [facility] Stop: 06/04/18 08:59 Last Admin: 04/07/18 08:33 Dose: 100 mg Ceftriaxone Sodium 1 gm/ (Sodium Chloride) 50 mls @ 100 mls/hr IV Q24HR [facility] Stop: 06/03/18 16:59 Last Infusion: 04/04/18 17:05 Dose: Infused Dextrose/Sodium Chloride (D5-0.45ns) 1,000 mls @ 75 mls/hr IV .[id number] [facility] Stop: 06/03/18 14:59 Last Admin: 04/05/18 04:20 Dose: 75 mls/hr Lactobacillus Rhamnosus (Culturelle 15b) 1 each PO DAILY [facility] Stop: 06/05/18 08:59 Last Admin: 04/07/18 08:33 Dose: 1 each Lorazepam (Ativan) 1 mg IVP Q4HR PRN; Protocol PRN Reason: Anxiety Stop: 06/03/18 20:10 Last Admin: 04/07/18 09:21 Dose: 1 mg Magnesium Hydroxide (Milk Of Magnesia) 30 ml PO HS PRN PRN Reason: Constipation Stop: 06/03/18 20:17 Miscellaneous (Probiotic Screen) 1 ea MC PRN PRN PRN Reason: PROTOCOL Stop: 06/04/18 09:29 Morphine Sulfate (Morphine) 1 mg IVP Q3HR PRN PRN Reason: Pain (Moderate) Stop: 06/03/18 14:29 Last Admin: 04/04/18 17:42 Dose: 1 mg Morphine Sulfate (Morphine) 2 mg IVP Q3HR PRN PRN Reason: Pain (Severe) Stop: 06/03/18 14:31 Last Admin: 04/06/18 21:23 Dose: 2 mg Senna (Senna) 8.6 mg PO HS [facility] Stop: 06/03/18 20:59 Last Admin: 04/06/18 21:07 Dose: 8.6 mg Sodium Phosphate (Fleet Enema) 135 ml RC Q2D PRN PRN Reason: Constipation Stop: 06/03/18 20:17 Zolpidem Tartrate (Ambien) 5 mg PO HS PRN PRN Reason: Insomnia Stop: 06/03/18 20:17 Last Admin: 04/07/18 00:27 Dose: 5 mg General: No acute distress HEENT: Atraumatic Neck: Supple Cardiovascular: Regular rate Lungs: Clear to auscultation Abdomen: Bowel sounds - Procedures Procedures: Procedures Procedure Code Date SUPPLEMENT R INGUINAL REGION WITH SYNTH SUB, OPEN APPROACH [id number] 04/04/18 Nutritional Asmnt/Malnutr-PDOC - Dietary Evaluation Malnutrition Findings (Please click <Entered> for more info): Nutritional Asmnt/Malnutrition Start: 04/07/18 11: 20 Text: Status: Complete Freq: Document 04/07/18 11:20 EGRIFFITH (Rec: 04/07/18 11:25 EGRIFFITH ASHLY- [email or web address]) Nutritional Asmnt/Malnutrition Patient General Information Diagnosis incarcerated R inguinal hernia Pertinent Medical Hx/Surgical Hx COPD, arthritis, cellulitis Subjective Information 04/05: OR repair of R inguinal hernia with mesh and plug, injection of exparel Current Diet Order/ Nutrition Support clear liquid diet Pertinent Medications maalox, bisaocodyl, coalce, culturelle, MOM, morhine, senna, fleet enema Pertinent Labs 04/05: Na 131, K 3.9, Cl 101, BUN 12, Cr 0.6, Ca 9.0, glucose 91 Nutritional Hx/Data Height 1.65 m Height (Calculated Centimeters) 165.1 Current Weight (lbs) 67.132 kg Weight (Calculated Kilograms) 67.1 Weight (Calculated Grams) 76549.7 Body Mass Index (BMI) 24.6 Weight Status Approriate GI Symptoms GI Symptoms None Last BM none noted Cultural/Ethnic/Anabaptism Belief unknown Usual diet at home regular Skin Integrity/Comment: hussein score 18 Current %PO Good (75-100%) Estimated Nutritional Goals BEE in Kcals: Using Current wt Calories/Kcals/Kg 28-33kcals/kg Kcals Calculated 1876-2211kcals/day Protein: Using Current wt Protein g/k.1-1.3g/kg Protein Calculated 74-87g/day Fluid: ml 1876-2211ml/day (1ml/kcal) Nutritional Problem 1. Problem Problem Inadequate energy intake related to Etiology increased nutrient needs as evidenced by Signs/Symptoms: clear liquid diet with s/p repair of R inguinal hernia repair. Intervention/Recommendation Comments Recommend to advance diet as tolerated to Regular diet Expected Outcomes/Goals Expected Outcomes/Goals PO intake >75% of meals
[2018-04-07] MEDS: cefTRIAXone 1 GM in Sodium Chloride 0.9% 50 ML IV SCH (16:34)
[2018-04-08 07:00] LABS: % BASOPHILS 0.8 % (0.0-2.0); % EOSINOPHILS 1.2 % (0.0-5.0); % LYMPHOCYTES 16.7 % (20.0-50.0); % MONOCYTES 13.1 % (2.0-10.0); % NEUTROPHILS 68.2 % (40.0-80.0); BASOPHILE ABSOLUTE 0.1 Th/cumm (0-0.2); EOSINOPHILE ABSOLUTE 0.1 Th/cmm (0.1-0.4); HEMATOCRIT 45.7 % (41.0-60); HEMOGLOBIN 15.4 gm/dL (12-16); LYMPHOCYTE ABSOLUTE 1.2 Th/cmm (1.5-3.0); MEAN CORPUSCULAR HGB CONC 33.7 pg (28.0-36.0); MEAN PLATELET VOLUME 8.5 fl; MONOCYTE ABSOLUTE 0.9 Th/cmm (0.3-1.0); NEUTROPHILE ABSOLUTE 4.6 Th/cmm (1.8-8.0); PLATELET COUNT 133 Th/cmm (150-400); RED BLOOD COUNT 4.97 Mil/cmm (3.80-5.80); RED CELL DISTRIBUTION WIDTH 13.1 % (11.5-20.0); WHITE BLOOD COUNT 6.9 Th/cmm (4.8-10.8)
[2018-04-08] MEDS: Lactobacillus Rhamnosus GG 15 Billion CFU CAP.SPRINK PO SCH (09:21)
--- NOTE | 2018-04-08 11:37 | General Progress Note ---
Subjective - Review of Systems Events since last encounter: patient awake but confused Subjective: afebrile nad Objective - Results Result Diagrams: 04/08/18 06:00 04/05/18 05:45 Recent Labs: Laboratory Last Values WBC 6.9 Th/cmm (4.8-10.8) 04/08/18 06:00 RBC 4.97 Mil/cmm (3.80-5.80) 04/08/18 06:00 Hgb 15.4 gm/dL (12-16) 04/08/18 06:00 Hct 45.7 % (41.0-60) 04/08/18 06:00 MCV 92.0 fl (80-99) 04/08/18 06:00 MCH 31.0 pg (27.0-31.0) 04/08/18 06:00 MCHC Differential 33.7 pg (28.0-36.0) 04/08/18 06:00 RDW 13.1 % (11.5-20.0) 04/08/18 06:00 Plt Count 133 Th/cmm (150-400) L 04/08/18 06:00 MPV 8.5 fl 04/08/18 06:00 Neutrophils % 68.2 % (40.0-80.0) 04/08/18 06:00 Lymphocytes % 16.7 % (20.0-50.0) L 04/08/18 06:00 Monocytes % 13.1 % (2.0-10.0) H 04/08/18 06:00 Eosinophils % 1.2 % (0.0-5.0) 04/08/18 06:00 Basophils % 0.8 % (0.0-2.0) 04/08/18 06:00 PT 11.6 SECONDS (9.5-11.5) H 04/04/18 12:28 INR 1.11 (0.5-1.4) 04/04/18 12:28 PTT (Actin FS) 26.6 SECONDS (26.0-38.0) 04/04/18 12:28 Sodium 131 mEq/L (136-145) L 04/05/18 05:45 Potassium 3.9 mEq/L (3.5-5.1) 04/05/18 05:45 Chloride 101 mEq/L (98-107) 04/05/18 05:45 Carbon Dioxide 22.6 mEq/L (21.0-31.0) 04/05/18 05:45 Anion Gap 11.3 (7.0-16.0) 04/05/18 05:45 BUN 12 mg/dL (7-25) 04/05/18 05:45 Creatinine 0.6 mg/dL (0.7-1.3) L 04/05/18 05:45 Est GFR ( Amer) > 60.0 ml/min (>90) 04/05/18 05:45 Est GFR (Non-Af Amer) > 60.0 ml/min 04/05/18 05:45 BUN/Creatinine Ratio 20.0 04/05/18 05:45 Glucose 91 mg/dL (70-105) 04/05/18 05:45 POC Glucose 97 MG/DL (70 - 105) 04/05/18 06:05 Calcium 9.0 mg/dL (8.6-10.3) 04/05/18 05:45 Total Bilirubin 0.7 mg/dL (0.3-1.0) 04/05/18 05:45 AST 20 U/L (13-39) 04/05/18 05:45 ALT 10 U/L (7-52) 04/05/18 05:45 Alkaline Phosphatase 69 U/L (34-104) 04/05/18 05:45 Total Protein 6.0 gm/dL (6.0-8.3) 04/05/18 05:45 Albumin 3.6 gm/dL (4.2-5.5) L 04/05/18 05:45 Globulin 2.4 gm/dL 04/05/18 05:45 Albumin/Globulin Ratio 1.5 (1.0-1.8) 04/05/18 05:45 Urine Source RANDOM 04/04/18 12:28 Urine Color YELLOW 04/04/18 12:28 Urine Clarity CLEAR (CLEAR) 04/04/18 12:28 Urine pH 7.5 (4.6 - 8.0) 04/04/18 12:28 Ur Specific [place] 1.015 (1.005-1.030) 04/04/18 12:28 Urine Protein NEGATIVE mg/dL (NEGATIVE) 04/04/18 12:28 Urine Glucose (UA) NEGATIVE mg/dL (NEGATIVE) 04/04/18 12:28 Urine Ketones NEGATIVE mg/dL (NEGATIVE) 04/04/18 12:28 Urine Blood NEGATIVE (NEGATIVE) 04/04/18 12:28 Urine Nitrate NEGATIVE (NEGATIVE) 04/04/18 12:28 Urine Bilirubin NEGATIVE (NEGATIVE) 04/04/18 12:28 Urine Urobilinogen 0.2 E.U./dL (0.2 - 1.0) 04/04/18 12:28 Ur Leukocyte Esterase NEGATIVE (NEGATIVE) 04/04/18 12:28 Urine WBC 0-2 /hpf (0-5) 04/04/18 12:28 Ur Epithelial Cells OCCASIONAL /lpf (FEW) 04/04/18 12:28 Amorphous Sediment FEW PHOSPHATES (NONE SEEN) 04/04/18 12:28 Urine Bacteria OCCASIONAL /hpf (NONE SEEN) 04/04/18 12:28 - Physical Exam Vitals and I&O: Vital Signs Temp 97 F 04/08/18 08:00 Pulse 97 04/08/18 08:00 Resp 18 04/08/18 08:00 BP 108/63 04/08/18 08:00 Pulse Ox 96 04/08/18 04:00 Intake & Output 04/07/18 04/08/18 04/08/18 18:59 06:59 18:59 Intake Total 240 Output Total 0 Balance 240 Weight (lbs) 65.771 kg 67.132 kg 67.132 kg Intake: Oral 240 Output: Stool 0 Other: # Voids 2 # Bowel Movements 0 Weight Source Estimated Bedscale Estimated Active Medications: Current Medications Acetaminophen (Tylenol Extra Strength) 1,000 mg PO Q4H PRN PRN Reason: Pain (Moderate) Stop: 06/03/18 20:17 Acetaminophen/Hydrocodone Bitart ([place] 5mg/325mg) 1 tab PO Q6H PRN PRN Reason: Pain (Severe) Stop: 06/03/18 20:17 Al Hydrox/Mg Hydrox/Simethicone (Maalox) 30 ml PO Q6H PRN PRN Reason: Indigestion Stop: 06/03/18 20:17 Aspirin (Ecotrin) 81 mg PO DAILY [facility] Stop: 06/04/18 08:59 Last Admin: 04/08/18 09:20 Dose: Not Given Bisacodyl (Dulcolax 10 Mg Supp) 10 mg RC DAILY PRN PRN Reason: Constipation Stop: 06/03/18 20:17 Docusate Sodium (Colace) 100 mg PO DAILY [facility] Stop: 06/04/18 08:59 Last Admin: 04/08/18 09:20 Dose: Not Given Ceftriaxone Sodium 1 gm/ (Sodium Chloride) 50 mls @ 100 mls/hr IV Q24HR [facility] Stop: 06/03/18 16:59 Last Admin: 04/07/18 16:34 Dose: 50 mls/hr Lactobacillus Rhamnosus (Culturelle 15b) 1 each PO DAILY [facility] Stop: 06/05/18 08:59 Last Admin: 04/08/18 09:21 Dose: Not Given Lorazepam (Ativan) 1 mg IVP Q4HR PRN; Protocol PRN Reason: Anxiety Stop: 06/03/18 20:10 Last Admin: 04/08/18 02:44 Dose: 1 mg Magnesium Hydroxide (Milk Of Magnesia) 30 ml PO HS PRN PRN Reason: Constipation Stop: 06/03/18 20:17 Miscellaneous (Probiotic Screen) 1 ea MC PRN PRN PRN Reason: PROTOCOL Stop: 06/04/18 09:29 Morphine Sulfate (Morphine) 1 mg IVP Q3HR PRN PRN Reason: Pain (Moderate) Stop: 06/03/18 14:29 Last Admin: 04/04/18 17:42 Dose: 1 mg Morphine Sulfate (Morphine) 2 mg IVP Q3HR PRN PRN Reason: Pain (Severe) Stop: 06/03/18 14:31 Last Admin: 04/06/18 21:23 Dose: 2 mg Senna (Senna) 8.6 mg PO HS EBER Stop: 06/03/18 20:59 Last Admin: 04/07/18 21:01 Dose: 8.6 mg Sodium Phosphate (Fleet Enema) 135 ml RC Q2D PRN PRN Reason: Constipation Stop: 06/03/18 20:17 Zolpidem Tartrate (Ambien) 5 mg PO HS PRN PRN Reason: Insomnia Stop: 06/03/18 20:17 Last Admin: 04/07/18 00:27 Dose: 5 mg General: No acute distress HEENT: Atraumatic Neck: Supple Cardiovascular: Regular rate Lungs: Clear to auscultation Abdomen: Bowel sounds - Procedures Procedures: Procedures Procedure Code Date SUPPLEMENT R INGUINAL REGION WITH SYNTH SUB, OPEN APPROACH [id number] 04/04/18 Assessment/Plan - Assessment Assessment: incarcerated right inguinal hernia arthritis copd - Plan Plan: cpm Nutritional Asmnt/Malnutr-PDOC - Dietary Evaluation Malnutrition Findings (Please click <Entered> for more info): Nutritional Asmnt/Malnutrition Start: 04/07/18 11: 20 Text: Status: Complete Freq: Document 04/07/18 11:20 LORENZO (Rec: 04/07/18 11:25 EGRIFFAIME LIMON- [email or web address]) Nutritional Asmnt/Malnutrition Patient General Information Diagnosis incarcerated R inguinal hernia Pertinent Medical Hx/Surgical Hx COPD, arthritis, cellulitis Subjective Information 04/05: OR repair of R inguinal hernia with mesh and plug, injection of exparel Current Diet Order/ Nutrition Support clear liquid diet Pertinent Medications maalox, bisaocodyl, coalce, culturelle, MOM, morhine, senna, fleet enema Pertinent Labs 04/05: Na 131, K 3.9, Cl 101, BUN 12, Cr 0.6, Ca 9.0, glucose 91 Nutritional Hx/Data Height 1.65 m Height (Calculated Centimeters) 165.1 Current Weight (lbs) 67.132 kg Weight (Calculated Kilograms) 67.1 Weight (Calculated Grams) 89548.7 Body Mass Index (BMI) 24.6 Weight Status Approriate GI Symptoms GI Symptoms None Last BM none noted Cultural/Ethnic/Anglican Belief unknown Usual diet at home regular Skin Integrity/Comment: hussein score 18 Current %PO Good (75-100%) Estimated Nutritional Goals BEE in Kcals: Using Current wt Calories/Kcals/Kg 28-33kcals/kg Kcals Calculated 1876-2211kcals/day Protein: Using Current wt Protein g/k.1-1.3g/kg Protein Calculated 74-87g/day Fluid: ml 1876-2211ml/day (1ml/kcal) Nutritional Problem 1. Problem Problem Inadequate energy intake related to Etiology increased nutrient needs as evidenced by Signs/Symptoms: clear liquid diet with s/p repair of R inguinal hernia repair. Intervention/Recommendation Comments Recommend to advance diet as tolerated to Regular diet Expected Outcomes/Goals Expected Outcomes/Goals PO intake >75% of meals
[2018-04-08] MEDS: cefTRIAXone 1 GM in Sodium Chloride 0.9% 50 ML IV SCH ×2 (17:25→21:08)
[2018-04-08] MEDS: Acetaminophen 500 MG TAB PO PRN (21:07)
[2018-04-09 06:25] LABS: % BASOPHILS 1.3 % (0.0-2.0); % EOSINOPHILS 1.1 % (0.0-5.0); % LYMPHOCYTES 11.8 % (20.0-50.0); % MONOCYTES 13.6 % (2.0-10.0); % NEUTROPHILS 72.2 % (40.0-80.0); BASOPHILE ABSOLUTE 0.1 Th/cumm (0-0.2); EOSINOPHILE ABSOLUTE 0.1 Th/cmm (0.1-0.4); HEMATOCRIT 44.4 % (41.0-60); LYMPHOCYTE ABSOLUTE 0.9 Th/cmm (1.5-3.0); MEAN CELL VOLUME 90.7 fl (80-99); MEAN CORPUSCULAR HEMOGLOBIN 30.7 pg (27.0-31.0); MEAN CORPUSCULAR HGB CONC 33.8 pg (28.0-36.0); MEAN PLATELET VOLUME 7.8 fl; NEUTROPHILE ABSOLUTE 5.4 Th/cmm (1.8-8.0); PLATELET COUNT 152 Th/cmm (150-400); WHITE BLOOD COUNT 7.5 Th/cmm (4.8-10.8)
[2018-04-09 06:41] LABS: ANION GAP 9.6 (7.0-16.0); BUN - UREA NITROGEN 17 mg/dL (7-25); CALCIUM SERUM 9.1 mg/dL (8.6-10.3); CARBON DIOXIDE 26.8 mEq/L (21.0-31.0); CHLORIDE 102 mEq/L (98-107); CREATININE - SERUM 0.7 mg/dL (0.7-1.3); GFR AFRICAN-AMERICAN > 60.0 ml/min (>90); GFR NON AFRICAN-AMERICAN > 60.0 ml/min; GLUCOSE 119 mg/dL (70-105); POTASSIUM SERUM 3.4 mEq/L (3.5-5.1); SODIUM SERUM 135 mEq/L (136-145)
[2018-04-09] MEDS: Lactobacillus Rhamnosus GG 15 Billion CFU CAP.SPRINK PO SCH (09:10)
--- NOTE | 2018-04-09 11:01 | General Progress Note ---
Subjective - Review of Systems Events since last encounter: still confused no fever Subjective: afebrile nad Objective - Results Result Diagrams: 04/09/18 06:10 04/09/18 06:10 Recent Labs: Laboratory Last Values WBC 7.5 Th/cmm (4.8-10.8) 04/09/18 06:10 RBC 4.90 Mil/cmm (3.80-5.80) 04/09/18 06:10 Hgb 15.0 gm/dL (12-16) 04/09/18 06:10 Hct 44.4 % (41.0-60) 04/09/18 06:10 MCV 90.7 fl (80-99) 04/09/18 06:10 MCH 30.7 pg (27.0-31.0) 04/09/18 06:10 MCHC Differential 33.8 pg (28.0-36.0) 04/09/18 06:10 RDW 13.0 % (11.5-20.0) 04/09/18 06:10 Plt Count 152 Th/cmm (150-400) 04/09/18 06:10 MPV 7.8 fl 04/09/18 06:10 Neutrophils % 72.2 % (40.0-80.0) 04/09/18 06:10 Lymphocytes % 11.8 % (20.0-50.0) L 04/09/18 06:10 Monocytes % 13.6 % (2.0-10.0) H 04/09/18 06:10 Eosinophils % 1.1 % (0.0-5.0) 04/09/18 06:10 Basophils % 1.3 % (0.0-2.0) 04/09/18 06:10 PT 11.6 SECONDS (9.5-11.5) H 04/04/18 12:28 INR 1.11 (0.5-1.4) 04/04/18 12:28 PTT (Actin FS) 26.6 SECONDS (26.0-38.0) 04/04/18 12:28 Sodium 135 mEq/L (136-145) L 04/09/18 06:10 Potassium 3.4 mEq/L (3.5-5.1) L 04/09/18 06:10 Chloride 102 mEq/L (98-107) 04/09/18 06:10 Carbon Dioxide 26.8 mEq/L (21.0-31.0) 04/09/18 06:10 Anion Gap 9.6 (7.0-16.0) 04/09/18 06:10 BUN 17 mg/dL (7-25) 04/09/18 06:10 Creatinine 0.7 mg/dL (0.7-1.3) 04/09/18 06:10 Est GFR ( Amer) > 60.0 ml/min (>90) 04/09/18 06:10 Est GFR (Non-Af Amer) > 60.0 ml/min 04/09/18 06:10 BUN/Creatinine Ratio 24.3 04/09/18 06:10 Glucose 119 mg/dL (70-105) H 04/09/18 06:10 POC Glucose 97 MG/DL (70 - 105) 04/05/18 06:05 Calcium 9.1 mg/dL (8.6-10.3) 04/09/18 06:10 Total Bilirubin 0.7 mg/dL (0.3-1.0) 04/05/18 05:45 AST 20 U/L (13-39) 04/05/18 05:45 ALT 10 U/L (7-52) 04/05/18 05:45 Alkaline Phosphatase 69 U/L (34-104) 04/05/18 05:45 Total Protein 6.0 gm/dL (6.0-8.3) 04/05/18 05:45 Albumin 3.6 gm/dL (4.2-5.5) L 04/05/18 05:45 Globulin 2.4 gm/dL 04/05/18 05:45 Albumin/Globulin Ratio 1.5 (1.0-1.8) 04/05/18 05:45 Urine Source RANDOM 04/04/18 12:28 Urine Color YELLOW 04/04/18 12:28 Urine Clarity CLEAR (CLEAR) 04/04/18 12:28 Urine pH 7.5 (4.6 - 8.0) 04/04/18 12:28 Ur Specific [place] 1.015 (1.005-1.030) 04/04/18 12:28 Urine Protein NEGATIVE mg/dL (NEGATIVE) 04/04/18 12:28 Urine Glucose (UA) NEGATIVE mg/dL (NEGATIVE) 04/04/18 12:28 Urine Ketones NEGATIVE mg/dL (NEGATIVE) 04/04/18 12:28 Urine Blood NEGATIVE (NEGATIVE) 04/04/18 12:28 Urine Nitrate NEGATIVE (NEGATIVE) 04/04/18 12:28 Urine Bilirubin NEGATIVE (NEGATIVE) 04/04/18 12:28 Urine Urobilinogen 0.2 E.U./dL (0.2 - 1.0) 04/04/18 12:28 Ur Leukocyte Esterase NEGATIVE (NEGATIVE) 04/04/18 12:28 Urine WBC 0-2 /hpf (0-5) 04/04/18 12:28 Ur Epithelial Cells OCCASIONAL /lpf (FEW) 04/04/18 12:28 Amorphous Sediment FEW PHOSPHATES (NONE SEEN) 04/04/18 12:28 Urine Bacteria OCCASIONAL /hpf (NONE SEEN) 04/04/18 12:28 - Physical Exam Vitals and I&O: Vital Signs Temp 97.1 F 04/09/18 07:40 Pulse 88 04/09/18 07:40 Resp 18 04/09/18 07:40 BP 127/83 04/09/18 07:40 Pulse Ox 97 04/09/18 07:40 Intake & Output 04/08/18 04/09/18 04/09/18 18:59 06:59 18:59 Intake Total 300 Output Total 0 Balance 300 Weight (lbs) 67.132 kg 67.132 kg Intake: Oral 300 Output: Stool 0 Other: # Voids 2 # Bowel Movements 0 Weight Source Estimated Bedscale Active Medications: Current Medications Acetaminophen (Tylenol Extra Strength) 1,000 mg PO Q4H PRN PRN Reason: Pain (Moderate) Stop: 06/03/18 20:17 Last Admin: 04/08/18 21:07 Dose: 1,000 mg Acetaminophen/Hydrocodone Bitart ([place] 5mg/325mg) 1 tab PO Q6H PRN PRN Reason: Pain (Severe) Stop: 06/03/18 20:17 Al Hydrox/Mg Hydrox/Simethicone (Maalox) 30 ml PO Q6H PRN PRN Reason: Indigestion Stop: 06/03/18 20:17 Aspirin (Ecotrin) 81 mg PO DAILY EBER Stop: 06/04/18 08:59 Last Admin: 04/09/18 09:12 Dose: Not Given Bisacodyl (Dulcolax 10 Mg Supp) 10 mg RC DAILY PRN PRN Reason: Constipation Stop: 06/03/18 20:17 Docusate Sodium (Colace) 100 mg PO DAILY [facility] Stop: 06/04/18 08:59 Last Admin: 04/09/18 09:10 Dose: Not Given Ceftriaxone Sodium 1 gm/ (Sodium Chloride) 50 mls @ 100 mls/hr IV Q24HR EBER Stop: 06/03/18 16:59 Last Admin: 04/08/18 21:08 Dose: 50 mls/hr Lactobacillus Rhamnosus (Culturelle 15b) 1 each PO DAILY [facility] Stop: 06/05/18 08:59 Last Admin: 04/09/18 09:10 Dose: Not Given Lorazepam (Ativan) 1 mg IVP Q4HR PRN; Protocol PRN Reason: Anxiety Stop: 06/03/18 20:10 Last Admin: 04/09/18 04:59 Dose: 1 mg Magnesium Hydroxide (Milk Of Magnesia) 30 ml PO HS PRN PRN Reason: Constipation Stop: 06/03/18 20:17 Miscellaneous (Probiotic Screen) 1 ea MC PRN PRN PRN Reason: PROTOCOL Stop: 06/04/18 09:29 Morphine Sulfate (Morphine) 1 mg IVP Q3HR PRN PRN Reason: Pain (Moderate) Stop: 06/03/18 14:29 Last Admin: 04/04/18 17:42 Dose: 1 mg Morphine Sulfate (Morphine) 2 mg IVP Q3HR PRN PRN Reason: Pain (Severe) Stop: 06/03/18 14:31 Last Admin: 04/06/18 21:23 Dose: 2 mg Senna (Senna) 8.6 mg PO HS [facility] Stop: 06/03/18 20:59 Last Admin: 04/08/18 21:08 Dose: 8.6 mg Sodium Phosphate (Fleet Enema) 135 ml RC Q2D PRN PRN Reason: Constipation Stop: 06/03/18 20:17 Zolpidem Tartrate (Ambien) 5 mg PO HS PRN PRN Reason: Insomnia Stop: 06/03/18 20:17 Last Admin: 04/07/18 00:27 Dose: 5 mg General: No acute distress HEENT: Atraumatic Neck: Supple Cardiovascular: Regular rate Lungs: Clear to auscultation Abdomen: Bowel sounds - Procedures Procedures: Procedures Procedure Code Date SUPPLEMENT R INGUINAL REGION WITH SYNTH SUB, OPEN APPROACH [id number] 04/04/18 Assessment/Plan - Assessment Assessment: incarcerated right inguinal hernia arthritis copd - Plan Plan: cpm Nutritional Asmnt/Malnutr-PDOC - Dietary Evaluation Malnutrition Findings (Please click <Entered> for more info): Nutritional Asmnt/Malnutrition Start: 04/07/18 11: 20 Text: Status: Complete Freq: Document 04/07/18 11:20 EGRIFFITH (Rec: 04/07/18 11:25 [facility] Nutritional Asmnt/Malnutrition Patient General Information Diagnosis incarcerated R inguinal hernia Pertinent Medical Hx/Surgical Hx COPD, arthritis, cellulitis Subjective Information 04/05: OR repair of R inguinal hernia with mesh and plug, injection of exparel Current Diet Order/ Nutrition Support clear liquid diet Pertinent Medications maalox, bisaocodyl, coalce, culturelle, MOM, morhine, senna, fleet enema Pertinent Labs 04/05: Na 131, K 3.9, Cl 101, BUN 12, Cr 0.6, Ca 9.0, glucose 91 Nutritional Hx/Data Height 1.65 m Height (Calculated Centimeters) 165.1 Current Weight (lbs) 67.132 kg Weight (Calculated Kilograms) 67.1 Weight (Calculated Grams) 48615.7 Body Mass Index (BMI) 24.6 Weight Status Approriate GI Symptoms GI Symptoms None Last BM none noted Cultural/Ethnic/Restorationism Belief unknown Usual diet at home regular Skin Integrity/Comment: hussein score 18 Current %PO Good (75-100%) Estimated Nutritional Goals BEE in Kcals: Using Current wt Calories/Kcals/Kg 28-33kcals/kg Kcals Calculated 1876-2211kcals/day Protein: Using Current wt Protein g/k.1-1.3g/kg Protein Calculated 74-87g/day Fluid: ml 1876-2211ml/day (1ml/kcal) Nutritional Problem 1. Problem Problem Inadequate energy intake related to Etiology increased nutrient needs as evidenced by Signs/Symptoms: clear liquid diet with s/p repair of R inguinal hernia repair. Intervention/Recommendation Comments Recommend to advance diet as tolerated to Regular diet Expected Outcomes/Goals Expected Outcomes/Goals PO intake >75% of meals
[2018-04-09] MEDS: Acetaminophen 500 MG TAB PO PRN (13:05)
[2018-04-09] MEDS: cefTRIAXone 1 GM in Sodium Chloride 0.9% 50 ML IV SCH ×2 (16:03→16:17)
[2018-04-09] MEDS: Hydrocodone/APAP 5mg/325mg Tab PO PRN (18:55)
[2018-04-10] MEDS: Hydrocodone/APAP 5mg/325mg Tab PO PRN (04:17)
[2018-04-10] MEDS: Lactobacillus Rhamnosus GG 15 Billion CFU CAP.SPRINK PO SCH (09:31)
--- NOTE | 2018-04-10 10:01 | Pathology Report ---
[id number] Collection date: 04/05/2018 Surgeon: Dr. Rose Nobles Specimen Description: Right hernia sac Gross Description: Received in formalin is a 9 x 3.5 x 0.4 cm portion of ramos-yoo fibromembranous connective tissue with a smooth glistening surface. Sectioning shows no focal lesions. 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 Microscopic Description: The histologic sections show membranous fibroconnective tissue with areas of fibrosis. Diagnosis: Consistent with hernia sac. [facility]# [id number] [facility]
[2018-04-10] MEDS ORDERED: Potassium Chloride 20 mEq ER Tab PO ONE (12:25)
== END 2018-04-10 17:35 | DRG 351 ==
LOC: ER 11:45 → MSI 14:00
PROVIDERS: ADMIT Internal Medicine; ATTEND Internal Medicine
PROC: 0YU50JZ Supplement Right Inguinal Region with Synthetic Substitute, Open Approach (ICD-10-PCS; principal; 2018-04-05)
DX: K40.30 Unilateral inguinal hernia, with obstruction, without gangrene, not specified as recurrent (principal); E87.1 Hypo-osmolality and hyponatremia; J44.9 Chronic obstructive pulmonary disease, unspecified; M19.90 Unspecified osteoarthritis, unspecified site; Z87.891 Personal history of nicotine dependence
CPT/HCPCS: 36415-UA; 71045-TC; 80048-TC; 80053-TC; 81001-TC; 82948-90; 85025-TC; 85610-TC; 85730-TC; 93005; 96372; C9290; J0696; J2060; J2405; J2704; J2710; J3010; V2790; X5716; X6258; Z7610

== ENCOUNTER 2018-06-30 13:49 | Emergency (ER) | payer MEDICARE, MEDICAID ==
--- NOTE | 2018-06-30 14:19 | ED Physician Chart ---
ED Chief Complaint/HPI - Patient Information Date Seen:: 06/30/18 Time Seen:: 14:04 Chief Complaint:: rash of the left lower leg History of Present Illness:: this is a 72 yo male [facility] of a rash on the left lower leg. he denies chest, head and abdominal pain. he denies nausea, vomiting and painful urination. Allergies:: Allergies Allergy/AdvReac Type Severity Reaction Status Date / Time No Known Allergies Allergy Verified 04/04/18 11:57 Vitals:: Vital Signs - 8 hr 06/30/18 13:57 Temp 98.0 F HR 80 RR 18 BP 134/88 O2 Sat % 95 Historian:: Patient, Medical Records Review:: Nurse's Note Reviewed, Transfer documents Reviewed ED Review of Systems - Review of Systems General/Constitutional: No fever, No chills, No weight loss, No weakness, No diaphoresis, No edema, No loss of appetite Skin: No skin lesions, No rash, No bruising Head: No headache, No light-headedness Eyes: No loss of vision, No pain, No diplopia ENT: No earache, No nasal drainage, No sore throat, No tinnitus Neck: No neck pain, No swelling, No thyromegaly, No stiffness, No mass noted Cardio Vascular: No chest pain, No palpitations, No PND, No orthopnea, No edema Pulmonary: No SOB, No cough, No sputum, No wheezing GI: No nausea, No vomiting, No diarrhea, No pain, No melena, No hematochezia, No constipation, No hematemesis G/U: No dysuria, No frequency, No hematuria Musculoskeletal: No bone or joint pain, No back pain, No muscle pain Endocrine: No polyuria, No polydipsia Psychiatric: No prior psych history, No depression, No anxiety, No suicidal ideation Hematopoietic: No bruising, No lymphadenopathy Allergic/Immuno: No urticaria, No angioedema Neurological: No syncope, No focal symptoms, No weakness, No paresthesia, No headache, No seizure, No dizziness, No confusion, No vertigo ED Past Medical History - Past Medical History Obtainable: Yes Past Medical History: CAD, Asthma/COPD, Arthritis Family History: None Social History: Non Smoker, No Alcohol, No Drug Use, Care Facility Surgical History: HIP, other (knee) Psychiatricy History: Dementia Family Medical History - Family Member Mother History Unknown: Yes ED Physical Exam - Physical Examination General/Constitutional: Awake, Well-developed, well-nourished, Alert, No distress, GCS 15, Non-toxic appearing, Ambulatory Head: Atraumatic Eyes: Lids, conjuctiva normal, PERRL, EOMI Skin: Nl inspection, No skin lesions, No ecchymosis, Well hydrated, No lymphadenopathy Other Skin comments:: fungal rash of the left lower leg. ENMT: External ears, nose nl, Nasal exam nl, Lips, teeth, gums nl Neck: Nontender, Full ROM w/o pain, No JVD, No nuchal rigidity, No bruit, No mass, No stridor Respiratory: Nl effort/Exclusion, Clear to Auscultation, No Wheeze/Rhonchi/Rales Cardio Vascular: RRR, No murmur, gallop, rubs, NL S1 S2 GI: No tenderness/rebounding/guarding, No organomegaly, No hernia, Normal BS's, Nondistended, No mass/bruits, No McBurney tenderness : No CVA tenderness Extremities: No tenderness or effusion, Full ROM, normal strength in all extremities, No edema, Normal digits & nails Neuro/Psych: Alert/oriented, DTR's symmetric, Normal sensory exam, Normal motor strength, Judgement/insight normal, Mood normal, Normal gait, No focal deficits Misc: Normal back, No paraspinal tenderness ED Labs/Radiology/EKG Results - EKG Interpretations EKG Time:: 14:04 Rate & Rhythm: RATE =77, SINUS [place]: RIGHT ED Assessment - Assessment General Assessment: fungal rash on the left lower leg ED Septic Shock - . 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
[2018-06-30 14:25] LABS: % BASOPHILS 1.3 % (0.0-2.0); % EOSINOPHILS 3.5 % (0.0-5.0); % LYMPHOCYTES 17.4 % (20.0-50.0); % MONOCYTES 8.5 % (2.0-10.0); % NEUTROPHILS 69.3 % (40.0-80.0); BASOPHILE ABSOLUTE 0.1 Th/cumm (0-0.2); EOSINOPHILE ABSOLUTE 0.2 Th/cmm (0.1-0.4); HEMATOCRIT 42.2 % (41.0-60); HEMOGLOBIN 14.5 gm/dL (12-16); LYMPHOCYTE ABSOLUTE 0.8 Th/cmm (1.5-3.0); MEAN CELL VOLUME 92.3 fl (80-99); MEAN CORPUSCULAR HEMOGLOBIN 31.7 pg (27.0-31.0); MEAN CORPUSCULAR HGB CONC 34.3 pg (28.0-36.0); MEAN PLATELET VOLUME 7.6 fl; MONOCYTE ABSOLUTE 0.4 Th/cmm (0.3-1.0); NEUTROPHILE ABSOLUTE 2.9 Th/cmm (1.8-8.0); PLATELET COUNT 147 Th/cmm (150-400); RED BLOOD COUNT 4.57 Mil/cmm (3.80-5.80); RED CELL DISTRIBUTION WIDTH 13.3 % (11.5-20.0); WHITE BLOOD COUNT 4.4 Th/cmm (4.8-10.8)
[2018-06-30 14:30] LABS: URINE SOURCE CLEAN C
[2018-06-30 14:32] LABS: URINE BILIRUBIN NEGATIVE (NEGATIVE); URINE BLOOD NEGATIVE (NEGATIVE); URINE GLUCOSE (UA) NEGATIVE (NEGATIVE); URINE KETONE NEGATIVE (NEGATIVE); URINE LEUKOCYTE ESTERASE NEGATIVE (NEGATIVE); URINE NITRATE NEGATIVE (NEGATIVE); URINE PROTEIN NEGATIVE (NEGATIVE)
[2018-06-30 14:32] LABS: INR 1.03 (0.5-1.4); PROTHROMBIN TIME (TEST) 10.7 SECONDS (9.5-11.5)
[2018-06-30 14:40] LABS: URINE CLARITY CLEAR (CLEAR); URINE COLOR YELLOW; URINE MICROSCOPIC INDICATED? YES
[2018-06-30 14:40] LABS: ALB/GLOB RATIO 1.5 (1.0-1.8); ALBUMIN 3.8 gm/dL (4.2-5.5); ALKALINE PHOSPHATASE 70 U/L (34-104); ANION GAP 9.7 (7.0-16.0); BILIRUBIN,TOTAL 0.5 mg/dL (0.3-1.0); BUN - UREA NITROGEN 13 mg/dL (7-25); CARBON DIOXIDE 24.1 mEq/L (21.0-31.0); CHLORIDE 100 mEq/L (98-107); CREATININE - SERUM 0.7 mg/dL (0.7-1.3); GFR AFRICAN-AMERICAN > 60.0 ml/min (>90); GFR NON AFRICAN-AMERICAN > 60.0 ml/min; GLUCOSE 153 mg/dL (70-105); POTASSIUM SERUM 3.8 mEq/L (3.5-5.1); SGOT 19 U/L (13-39); SGPT/ALT 12 U/L (7-52); SODIUM SERUM 130 mEq/L (136-145); TOTAL PROTEIN,SERUM 6.3 gm/dL (6.0-8.3)
[2018-06-30 14:56] LABS: URINE BACTERIA OCCASIONAL /hpf (NONE SEEN); URINE EPITHELIAL CELLS FEW /lpf (FEW); URINE WBC 0-2 /hpf (0-5)
--- NOTE | 2018-07-01 09:40 | Diagnostic Imaging Report ---
CHEST X-RAY: AP view INDICATION: Shortness of breath COMPARISON: 04/04/2018 FINDINGS: Chronic lung changes are seen. No focal consolidation pleural effusions. Right-sided pleural thickening is again noted. Mild cardiomegaly is noted with tortuous aorta and atherosclerosis. Degenerative changes of the spine are noted with scoliosis. There is linear density projecting along the right proximal humerus. Old left clavicular fracture is noted. IMPRESSION: No focal consolidation identified. Mild cardiomegaly with tortuous aorta and atherosclerosis. There may be a hiatal hernia. Lateral view would further clarify. Right-sided pleural thickening. Linear density projecting along the right proximal humerus which may represent external material overlying the patient or may be sequela of previous trauma. If indicated, dedicated right shoulder x-rays may be obtained.
== END 2018-06-30 15:50 ==
LOC: ER 13:49
DX: B49 Unspecified mycosis (principal); J44.9 Chronic obstructive pulmonary disease, unspecified; I25.10 Atherosclerotic heart disease of native coronary artery without angina pectoris; M19.90 Unspecified osteoarthritis, unspecified site; Z98.890 Other specified postprocedural states
CPT/HCPCS: 36415-UA; 71045-TC; 80053-TC; 81001-TC; 84443-TC; 84484-TC; 85025-TC; 85610-TC; 85730-TC; 93005

== ENCOUNTER 2018-07-01 21:14 | Inpatient (IN) | payer MEDICARE, MEDICAID ==
[2018-07-01] MEDS ORDERED: Fleet Enema 135 mL RC PRN (21:47)
[2018-07-01] MEDS ORDERED: Non-Formulary Item 1 EA (Acetaminophen [Pain Reliever] 1 TAB) PO PRN (21:47)
[2018-07-01] MEDS ORDERED: Hydrocodone/APAP 5mg/325mg Tab PO PRN (21:47)
[2018-07-01] MEDS ORDERED: Magnesium Hydroxide (MOM) 30 mL UDC PO PRN (21:47)
[2018-07-01] MEDS ORDERED: Acetaminophen 500 MG TAB PO PRN (21:47)
[2018-07-01] MEDS ORDERED: SIMETHICONE PO PRN (21:47)
[2018-07-01] MEDS ORDERED: Simethicone 20 mg/0.3 mL 30mL Bottle PO PRN (22:23)
--- NOTE | 2018-07-01 23:37 | History & Physical ---
ADMIT DATE: 07/02/2018 HISTORY OF PRESENT ILLNESS: The patient was directly admitted from [facility] to the hospital. Essentially, this patient came actually yesterday to the ER and the patient had severe erythema, tenderness, swelling, very weak left lower leg cellulitis, and possible Staph or strep infection and the patient was readmitted for that problem. The patient known to have history of COPD, history of dysphagia, history of artificial left hip, history of falling and history of incisional hernia repair a while ago with gangrene. PAST MEDICAL HISTORY: As enumerated above. PAST SURGICAL HISTORY: As enumerated above. FAMILY HISTORY: Unremarkable. PHYSICAL EXAMINATION: HEAD: Normal. ENT: Normal. NECK: Supple, nontender. LUNGS: Clear. CARDIOVASCULAR SYSTEM: S1, S2 heard. ABDOMEN: Soft. Bowel sounds are heard. CENTRAL NERVOUS SYSTEM: Grossly normal size, slightly confused. EXTREMITIES: Left lower leg erythema, tenderness noted. DIAGNOSES: Left lower leg erythema, tenderness, rule out Staph and strep infection; history of left hip replacement; history of osteoarthritis; history of recent hernia repair with gangrene; history of recurrent falling; and severe weakness. PLAN: The patient is being admitted. I will go ahead and continue all his medication. I will call Dr. Mg Lorenzo, we will order some IV antibiotics, and I will closely follow the patient. FINAL DIAGNOSES: Leukocytosis, sepsis, left lower limb cellulitis. JOB# [id number]
[2018-07-02] MEDS ORDERED: Non-Formulary Item 1 EA (Amino Acids/Protein Hydrolys [Pro-Stat Sugar Free Liquid] 30 ML) PO SCH (09:00)
[2018-07-02] MEDS ORDERED: VTE Chemical Prophylaxis Screen/Admission MC PRN (11:45)
--- NOTE | 2018-07-02 15:42 | General Progress Note ---
Subjective - Review of Systems Events since last encounter: patient admitted with left lower leg cellulitis weakness Objective - Physical Exam Vitals and I&O: Vital Signs Temp 96.1 F 07/02/18 11:51 Pulse 65 07/02/18 11:51 Resp 18 07/02/18 11:51 BP 120/72 07/02/18 11:51 Pulse Ox 96 07/02/18 11:51 Intake & Output 07/01/18 07/02/18 07/02/18 18:59 06:59 18:59 Intake Total 200 Balance 200 Weight (lbs) 68.039 kg Intake: Oral 200 Other: Weight Source Estimated Active Medications: Current Medications Acetaminophen (Tylenol Extra Strength) 500 mg PO Q4H PRN PRN Reason: Pain (Moderate) LEVEL 4-6 Stop: 08/30/18 21:46 Acetaminophen/Hydrocodone Bitart ([place] 5mg/325mg) 1 tab PO Q6H PRN PRN Reason: Severe Pain (LEVEL 7-10) Stop: 08/30/18 21:46 Aspirin (Ecotrin) 81 mg PO DAILY EBER Stop: 08/31/18 08:59 Last Admin: 07/02/18 09:32 Dose: 81 mg Benzocaine/Menthol (Cepacol) 1 galen MM Q2HR PRN PRN Reason: Sore Throat Stop: 08/30/18 21:46 Bisacodyl (Dulcolax 10 Mg Supp) 10 mg RC DAILY PRN PRN Reason: Constipation, IF MOM INEFFECTI Stop: 08/30/18 21:46 Heparin Sodium (Porcine) (Heparin) 5,000 units SUBQ Q12HR EBER Stop: 08/31/18 20:59 Ceftriaxone Sodium 1 gm/ (Dextrose) 50 mls @ 100 mls/hr IV Q24H EBER Stop: 08/31/18 14:59 Vancomycin HCl 1.25 gm/ Sodium (Chloride) 250 mls @ 165 mls/hr IV ONCE ONE Stop: 07/02/18 17:00 Magnesium Hydroxide (Milk Of Magnesia) 30 ml PO HS PRN PRN Reason: Constipation Stop: 08/30/18 21:46 Miscellaneous (Vte Chemical Prophylaxis Screen/ Admission) 1 ea PRN PRN PRN Reason: PROTOCOL Stop: 08/31/18 11:44 Miscellaneous (Vancomycin Iv Per Pharmacy) 1 ea PRN EBER Stop: 08/31/18 14:29 Senna (Senna) 8.6 mg PO HS EBER Stop: 08/31/18 20:59 Simethicone (Gas Relief Drops) 20 mg PO Q6H PRN PRN Reason: Gas Stop: 08/30/18 22:22 Sodium Phosphate (Fleet Enema) 135 ml RC Q2D PRN PRN Reason: Constipation Stop: 08/30/18 21:46 - Procedures Procedures: Procedures Procedure Code Date SUPPLEMENT R INGUINAL REGION WITH SYNTH SUB, OPEN APPROACH [id number] 04/04/18
[2018-07-02 16:00] LABS: % BASOPHILS 0.9 % (0.0-2.0); % EOSINOPHILS 2.8 % (0.0-5.0); % LYMPHOCYTES 21.9 % (20.0-50.0); % MONOCYTES 10.6 % (2.0-10.0); % NEUTROPHILS 63.8 % (40.0-80.0); EOSINOPHILE ABSOLUTE 0.1 Th/cmm (0.1-0.4); HEMATOCRIT 44.7 % (41.0-60); HEMOGLOBIN 14.9 gm/dL (12-16); MEAN CELL VOLUME 92.3 fl (80-99); MEAN CORPUSCULAR HEMOGLOBIN 30.8 pg (27.0-31.0); MEAN CORPUSCULAR HGB CONC 33.3 pg (28.0-36.0); MEAN PLATELET VOLUME 7.3 fl; MONOCYTE ABSOLUTE 0.5 Th/cmm (0.3-1.0); NEUTROPHILE ABSOLUTE 2.9 Th/cmm (1.8-8.0); PLATELET COUNT 151 Th/cmm (150-400); RED BLOOD COUNT 4.85 Mil/cmm (3.80-5.80); RED CELL DISTRIBUTION WIDTH 13.2 % (11.5-20.0); WHITE BLOOD COUNT 4.5 Th/cmm (4.8-10.8)
[2018-07-02 16:18] LABS: ANION GAP 9.3 (7.0-16.0); BUN - UREA NITROGEN 14 mg/dL (7-25); CALCIUM SERUM 9.2 mg/dL (8.6-10.3); CARBON DIOXIDE 25.8 mEq/L (21.0-31.0); CHLORIDE 100 mEq/L (98-107); CREATININE - SERUM 0.7 mg/dL (0.7-1.3); GFR AFRICAN-AMERICAN > 60.0 ml/min (>90); GFR NON AFRICAN-AMERICAN > 60.0 ml/min; GLUCOSE 100 mg/dL (70-105); POTASSIUM SERUM 4.1 mEq/L (3.5-5.1); SODIUM SERUM 131 mEq/L (136-145)
[2018-07-02] MEDS ORDERED: Haloperidol Lactate 5 mg/mL 1mL Vial IVP ONE (21:13)
[2018-07-02] MEDS ORDERED: Haloperidol Lactate 5 mg/mL 1mL Vial IM ONE (21:27)
--- NOTE | 2018-07-02 23:54 | Consultation ---
DATE OF CONSULTATION: 07/02/2018 INFECTIOUS DISEASE CONSULTATION REFERRING PHYSICIAN: Dr. Guzman. REASON FOR CONSULTATION: Left leg cellulitis. HISTORY OF PRESENT ILLNESS: The patient is a 72-year-old male with a past medical history of COPD, dysphagia, left hip replacement, history of falling, history of hernia repair brought in from nursing facility for left leg swelling and erythema. On initial evaluation, the patient was afebrile. Recent lab on 06/30/2018 showed creatinine 0.7 and platelet 144,000. ID consult was called for antibiotic management. PAST MEDICAL HISTORY: As mentioned above, COPD, dysphagia, left hip replacement, left knee replacement, history of falling, history of incisional hernia repair recently. FAMILY HISTORY: Noncontributory. PHYSICAL EXAMINATION: VITAL SIGNS: Shows temperature is 96.1 degrees Fahrenheit, pulse 65, respirations 18, blood pressure 120/72. GENERAL: The patient is comfortable, lying in the bed, not in acute distress. HEENT: Head is normocephalic, atraumatic. Oral cavity moist, pink tongue. Eyes: Pallor is present, no icterus. Pupils PERRLA, EOMI. NECK: Supple, no JVD, no carotid bruit. Trachea in midline. CHEST: Bilateral breath sounds. No crackles or wheezing. HEART: S1, S2 within normal limits. Regular rhythm. No murmur, no gallop. ABDOMEN: Soft, nontender, nondistended. Bowel sounds present. EXTREMITIES: No cyanosis, no clubbing, no edema. Left leg has patchy erythema on the anterior aspect of the left leg. No open wound. No distress. IMPRESSION: 1. Left leg cellulitis. 2. Chronic obstructive pulmonary disease. 3. Dysphagia. PLAN: We will start Rocephin and vancomycin. We will see the response in the next 2 days on Coumadin and in the next 2-3 days, may change antibiotic to oral. Thank you, Dr. Guzman, for involving me in taking care of this patient. JOB# [id number]
[2018-07-03 10:53] LABS: % EOSINOPHILS 1.6 % (0.0-5.0); % LYMPHOCYTES 14.4 % (20.0-50.0); % MONOCYTES 10.3 % (2.0-10.0); % NEUTROPHILS 73.7 % (40.0-80.0); EOSINOPHILE ABSOLUTE 0.1 Th/cmm (0.1-0.4); HEMATOCRIT 44.4 % (41.0-60); HEMOGLOBIN 14.9 gm/dL (12-16); LYMPHOCYTE ABSOLUTE 0.7 Th/cmm (1.5-3.0); MEAN CELL VOLUME 91.7 fl (80-99); MEAN CORPUSCULAR HEMOGLOBIN 30.7 pg (27.0-31.0); MEAN CORPUSCULAR HGB CONC 33.5 pg (28.0-36.0); MEAN PLATELET VOLUME 7.5 fl; MONOCYTE ABSOLUTE 0.5 Th/cmm (0.3-1.0); NEUTROPHILE ABSOLUTE 3.5 Th/cmm (1.8-8.0); PLATELET COUNT 154 Th/cmm (150-400); RED BLOOD COUNT 4.84 Mil/cmm (3.80-5.80); RED CELL DISTRIBUTION WIDTH 13.1 % (11.5-20.0); WHITE BLOOD COUNT 4.8 Th/cmm (4.8-10.8)
[2018-07-03 11:07] LABS: ANION GAP 10.8 (7.0-16.0); BUN - UREA NITROGEN 11 mg/dL (7-25); CALCIUM SERUM 8.9 mg/dL (8.6-10.3); CARBON DIOXIDE 25.9 mEq/L (21.0-31.0); CHLORIDE 99 mEq/L (98-107); CREATININE - SERUM 0.6 mg/dL (0.7-1.3); GFR AFRICAN-AMERICAN > 60.0 ml/min (>90); GFR NON AFRICAN-AMERICAN > 60.0 ml/min; GLUCOSE 97 mg/dL (70-105); POTASSIUM SERUM 3.7 mEq/L (3.5-5.1); SODIUM SERUM 132 mEq/L (136-145)
[2018-07-03] MEDS ORDERED: Probiotic Screen MC PRN (11:30)
--- NOTE | 2018-07-03 14:37 | Infectious Disease Prog Note ---
Infectious Disease Subjective - Review of Systems Service Date: 07/03/18 Subjective: There is no new change. No fever. Infectious Disease Objective - Results Result Diagrams: 07/03/18 10:36 07/03/18 10:36 Recent Labs: Laboratory Last Values WBC 4.8 Th/cmm (4.8-10.8) 07/03/18 10:36 RBC 4.84 Mil/cmm (3.80-5.80) 07/03/18 10:36 Hgb 14.9 gm/dL (12-16) 07/03/18 10:36 Hct 44.4 % (41.0-60) 07/03/18 10:36 MCV 91.7 fl (80-99) 07/03/18 10:36 MCH 30.7 pg (27.0-31.0) 07/03/18 10:36 MCHC Differential 33.5 pg (28.0-36.0) 07/03/18 10:36 RDW 13.1 % (11.5-20.0) 07/03/18 10:36 Plt Count 154 Th/cmm (150-400) 07/03/18 10:36 MPV 7.5 fl 07/03/18 10:36 Neutrophils % 73.7 % (40.0-80.0) 07/03/18 10:36 Lymphocytes % 14.4 % (20.0-50.0) L 07/03/18 10:36 Monocytes % 10.3 % (2.0-10.0) H 07/03/18 10:36 Eosinophils % 1.6 % (0.0-5.0) 07/03/18 10:36 Basophils % 0.0 % (0.0-2.0) 07/03/18 10:36 Sodium 132 mEq/L (136-145) L 07/03/18 10:36 Potassium 3.7 mEq/L (3.5-5.1) 07/03/18 10:36 Chloride 99 mEq/L (98-107) 07/03/18 10:36 Carbon Dioxide 25.9 mEq/L (21.0-31.0) 07/03/18 10:36 Anion Gap 10.8 (7.0-16.0) 07/03/18 10:36 BUN 11 mg/dL (7-25) 07/03/18 10:36 Creatinine 0.6 mg/dL (0.7-1.3) L 07/03/18 10:36 Est GFR ( Amer) > 60.0 ml/min (>90) 07/03/18 10:36 Est GFR (Non-Af Amer) > 60.0 ml/min 07/03/18 10:36 BUN/Creatinine Ratio 18.3 07/03/18 10:36 Glucose 97 mg/dL (70-105) 07/03/18 10:36 Calcium 8.9 mg/dL (8.6-10.3) 07/03/18 10:36 - Physical Exam Vitals and I&O: Vital Signs Temp 96.7 F 07/03/18 11:55 Pulse 71 07/03/18 11:55 Resp 17 07/03/18 11:55 BP 101/70 07/03/18 11:55 Pulse Ox 100 07/03/18 11:55 Intake & Output 07/02/18 07/03/18 07/03/18 18:59 06:59 18:59 Weight (lbs) 68.039 kg Other: Weight Source Bedscale Active Medications: Current Medications Acetaminophen (Tylenol Extra Strength) 500 mg PO Q4H PRN PRN Reason: Pain (Moderate) LEVEL 4-6 Stop: 08/30/18 21:46 Acetaminophen/Hydrocodone Bitart ([place] 5mg/325mg) 1 tab PO Q6H PRN PRN Reason: Severe Pain (LEVEL 7-10) Stop: 08/30/18 21:46 Aspirin (Ecotrin) 81 mg PO DAILY [facility] Stop: 08/31/18 08:59 Last Admin: 07/03/18 10:32 Dose: 81 mg Benzocaine/Menthol (Cepacol) 1 galen MM Q2HR PRN PRN Reason: Sore Throat Stop: 08/30/18 21:46 Bisacodyl (Dulcolax 10 Mg Supp) 10 mg RC DAILY PRN PRN Reason: Constipation, IF MOM INEFFECTI Stop: 08/30/18 21:46 Heparin Sodium (Porcine) (Heparin) 5,000 units SUBQ Q12HR [facility] Stop: 08/31/18 20:59 Last Admin: 07/03/18 10:32 Dose: 5,000 units Ceftriaxone Sodium 1 gm/ (Dextrose) 50 mls @ 100 mls/hr IV Q24H EBER Stop: 08/31/18 14:59 Last Admin: 07/02/18 22:04 Dose: Not Given Vancomycin HCl 1.25 gm/ Sodium (Chloride) 250 mls @ 165 mls/hr IV Q24H EBER Stop: 09/01/18 08:59 Last Admin: 07/03/18 10:40 Dose: 165 mls/hr Lactobacillus Rhamnosus (Culturelle 15b) 1 each PO DAILY EBER Stop: 09/02/18 08:59 Lorazepam (Ativan) 1 mg IVP Q6HR PRN; Protocol PRN Reason: Agitation Stop: 08/31/18 20:13 Last Admin: 07/03/18 13:39 Dose: 1 mg Magnesium Hydroxide (Milk Of Magnesia) 30 ml PO HS PRN PRN Reason: Constipation Stop: 08/30/18 21:46 Miscellaneous (Vte Chemical Prophylaxis Screen/ Admission) 1 ea PRN PRN PRN Reason: PROTOCOL Stop: 08/31/18 11:44 Miscellaneous (Vancomycin Iv Per Pharmacy) 1 ea MC PRN EBER Stop: 08/31/18 14:29 Miscellaneous (Probiotic Screen) 1 ea PRN PRN PRN Reason: PROTOCOL Stop: 09/01/18 11:29 Senna (Senna) 8.6 mg PO HS EBER Stop: 08/31/18 20:59 Last Admin: 07/02/18 20:43 Dose: 8.6 mg Simethicone (Gas Relief Drops) 20 mg PO Q6H PRN PRN Reason: Gas Stop: 08/30/18 22:22 Sodium Phosphate (Fleet Enema) 135 ml RC Q2D PRN PRN Reason: Constipation Stop: 08/30/18 21:46 General: no acute distress, well developed, well nourished HEENT: atraumatic, normocephalic, PERRLA, EOMI, moist mucous membrane Neck: supple, no thyromegaly Cardiovascular: S1S2, regular Lungs: clear to auscultation bilaterally, clear to percussion Abdomen: soft, no tender, no distended Extremities: other (erythema in the left leg is less intense.), no cyanosis, no clubbing, no edema Neurological: awake, alert, oriented Skin: intact - Procedures Procedures: Procedures Procedure Code Date SUPPLEMENT R INGUINAL REGION WITH SYNTH SUB, OPEN APPROACH [id number] 04/04/18 Infectious Disease Assmt/Plan - Assessment Assessment: 1. Left leg cellulitis. improving. 2. Chronic obstructive pulmonary disease. 3. Dysphagia. - Plan Plan: vanco iV and ceftriaxone. may uinitiate dc plan in next one or two days.
--- NOTE | 2018-07-04 07:50 | Consultation ---
DATE OF CONSULTATION: 07/04/2018 AGE: 72-year-old. SEX: PHYSICIAN: Jessica Mendez MD, MPH CHIEF COMPLAINT: Agitation and irritability. HISTORY OF PRESENT ILLNESS: The patient is a 72-year-old male who was admitted to the hospital because of severe erythema and tenderness and swelling and very weak left lower leg and the patient diagnosed with cellulitis in left lower leg with the staph or strep infection. Upon admission to the hospital, the patient has been agitated and irritable and has not been able to follow directions. He has been trying to get off the bed exposing himself to dangers of falling. Also, has been confused, which might be due to his infection. The patient also was given mittens, and the patient also has been restless and he is having difficulty with mood and mood swings. The patient also is in irritable and angry mood. PAST PSYCHIATRIC HISTORY: The patient has history of what might be dementia. PAST MEDICAL HISTORY: The patient has COPD, dysphagia, left hip replacement, left knee replacement, and history of hernia repair. The patient also admitted with cellulitis of left leg. SOCIAL HISTORY: The patient lives in [facility]. No known alcohol or drug use. MENTAL STATUS EXAM: The patient appears his stated age. Anxious. Sad affect. In irritable mood. Disorganized thoughts. Unable to answer any of my questions coherently and gets agitated and irritable easily when asking him questions. The patient also is having mittens in both hands because of his agitation and trying to get of bed. The patient is alert, but unable to assess orientation or memory at this time because of agitation and confusion. ASSESSMENT: PRIMARY DIAGNOSIS: Unspecified psychosis. TREATMENT PLAN: We will start the patient on Seroquel 25 mg 3 times a day and we will adjust the dose. Also, we will monitor his behavior. Thanks Dr. Guzman and we will follow up with you. [facility]# [id number]
[2018-07-04] MEDS: Lactobacillus Rhamnosus GG 15 Billion CFU CAP.SPRINK PO SCH (10:58)
--- NOTE | 2018-07-04 14:14 | General Progress Note ---
Subjective - Review of Systems Events since last encounter: patient irritable confused Objective - Results Result Diagrams: 07/03/18 10:36 07/03/18 10:36 Recent Labs: Laboratory Last Values WBC 4.8 Th/cmm (4.8-10.8) 07/03/18 10:36 RBC 4.84 Mil/cmm (3.80-5.80) 07/03/18 10:36 Hgb 14.9 gm/dL (12-16) 07/03/18 10:36 Hct 44.4 % (41.0-60) 07/03/18 10:36 MCV 91.7 fl (80-99) 07/03/18 10:36 MCH 30.7 pg (27.0-31.0) 07/03/18 10:36 MCHC Differential 33.5 pg (28.0-36.0) 07/03/18 10:36 RDW 13.1 % (11.5-20.0) 07/03/18 10:36 Plt Count 154 Th/cmm (150-400) 07/03/18 10:36 MPV 7.5 fl 07/03/18 10:36 Neutrophils % 73.7 % (40.0-80.0) 07/03/18 10:36 Lymphocytes % 14.4 % (20.0-50.0) L 07/03/18 10:36 Monocytes % 10.3 % (2.0-10.0) H 07/03/18 10:36 Eosinophils % 1.6 % (0.0-5.0) 07/03/18 10:36 Basophils % 0.0 % (0.0-2.0) 07/03/18 10:36 Sodium 132 mEq/L (136-145) L 07/03/18 10:36 Potassium 3.7 mEq/L (3.5-5.1) 07/03/18 10:36 Chloride 99 mEq/L (98-107) 07/03/18 10:36 Carbon Dioxide 25.9 mEq/L (21.0-31.0) 07/03/18 10:36 Anion Gap 10.8 (7.0-16.0) 07/03/18 10:36 BUN 11 mg/dL (7-25) 07/03/18 10:36 Creatinine 0.6 mg/dL (0.7-1.3) L 07/03/18 10:36 Est GFR ( Amer) > 60.0 ml/min (>90) 07/03/18 10:36 Est GFR (Non-Af Amer) > 60.0 ml/min 07/03/18 10:36 BUN/Creatinine Ratio 18.3 07/03/18 10:36 Glucose 97 mg/dL (70-105) 07/03/18 10:36 Calcium 8.9 mg/dL (8.6-10.3) 07/03/18 10:36 Vancomycin Trough 5.3 ug/mL (5-10) 07/04/18 09:18 - Physical Exam Vitals and I&O: Vital Signs Temp 98.0 F 07/04/18 12:02 Pulse 98 07/04/18 12:02 Resp 18 07/04/18 12:02 BP 149/88 07/04/18 12:02 Pulse Ox 97 07/04/18 12:02 Intake & Output 07/03/18 07/04/18 07/04/18 18:59 06:59 18:59 Intake Total 250 50 Balance 250 50 Weight (lbs) 72.575 kg Intake: Intake, IV Amount 250 50 Vancomycin HCl 1.25 gm In 250 Sodium Chloride 0.9% 250 ml @ 165 mls/hr IV Q24H [facility] Rx#:[id number] cefTRIAXone 1 gm In 50 Dextrose 5% 50 ml @ 100 mls/hr IV Q24H [facility] Rx#: [id number] Other: Weight Source Bedscale Active Medications: Current Medications Acetaminophen (Tylenol Extra Strength) 500 mg PO Q4H PRN PRN Reason: Pain (Moderate) LEVEL 4-6 Stop: 08/30/18 21:46 Acetaminophen/Hydrocodone Bitart ([place] 5mg/325mg) 1 tab PO Q6H PRN PRN Reason: Severe Pain (LEVEL 7-10) Stop: 08/30/18 21:46 Aspirin (Ecotrin) 81 mg PO DAILY [facility] Stop: 08/31/18 08:59 Last Admin: 07/04/18 10:58 Dose: Not Given Benzocaine/Menthol (Cepacol) 1 galen MM Q2HR PRN PRN Reason: Sore Throat Stop: 08/30/18 21:46 Bisacodyl (Dulcolax 10 Mg Supp) 10 mg RC DAILY PRN PRN Reason: Constipation, IF MOM INEFFECTI Stop: 08/30/18 21:46 Heparin Sodium (Porcine) (Heparin) 5,000 units SUBQ Q12HR [facility] Stop: 08/31/18 20:59 Last Admin: 07/04/18 10:59 Dose: Not Given Ceftriaxone Sodium 1 gm/ (Dextrose) 50 mls @ 100 mls/hr IV Q24H [facility] Stop: 08/31/18 14:59 Last Infusion: 07/03/18 19:00 Dose: Infused Vancomycin HCl 1.25 gm/ Sodium (Chloride) 250 mls @ 165 mls/hr IV Q24H [facility] Stop: 07/04/18 17:00 Last Admin: 07/04/18 11:07 Dose: 165 mls/hr Vancomycin HCl 1.25 gm/ Sodium (Chloride) 250 mls @ 165 mls/hr IV Q12H [facility] Stop: 09/02/18 20:59 Lactobacillus Rhamnosus (Culturelle 15b) 1 each PO DAILY [facility] Stop: 09/02/18 08:59 Last Admin: 07/04/18 10:58 Dose: Not Given Lorazepam (Ativan) 1 mg IVP Q6HR PRN; Protocol PRN Reason: Agitation Stop: 08/31/18 20:13 Last Admin: 07/03/18 20:58 Dose: 1 mg Magnesium Hydroxide (Milk Of Magnesia) 30 ml PO HS PRN PRN Reason: Constipation Stop: 08/30/18 21:46 Miscellaneous (Vte Chemical Prophylaxis Screen/ Admission) 1 ea PRN PRN PRN Reason: PROTOCOL Stop: 08/31/18 11:44 Miscellaneous (Vancomycin Iv Per Pharmacy) 1 ea MC PRN [facility] Stop: 08/31/18 14:29 Miscellaneous (Probiotic Screen) 1 ea PRN PRN PRN Reason: PROTOCOL Stop: 09/01/18 11:29 Quetiapine Fumarate (Seroquel) 25 mg PO TID EBER; Protocol Stop: 09/02/18 10:59 Last Admin: 07/04/18 11:06 Dose: Not Given Senna (Senna) 8.6 mg PO HS [facility] Stop: 08/31/18 20:59 Last Admin: 07/03/18 20:59 Dose: 8.6 mg Simethicone (Gas Relief Drops) 20 mg PO Q6H PRN PRN Reason: Gas Stop: 08/30/18 22:22 Sodium Phosphate (Fleet Enema) 135 ml RC Q2D PRN PRN Reason: Constipation Stop: 08/30/18 21:46 - Procedures Procedures: Procedures Procedure Code Date SUPPLEMENT R INGUINAL REGION WITH SYNTH SUB, OPEN APPROACH [id number] 04/04/18
[2018-07-05] MEDS: Lactobacillus Rhamnosus GG 15 Billion CFU CAP.SPRINK PO SCH (09:24)
--- NOTE | 2018-07-05 11:42 | General Progress Note ---
Subjective - Review of Systems Events since last encounter: continues to be confused Objective - Results Result Diagrams: 07/03/18 10:36 07/03/18 10:36 Recent Labs: Laboratory Last Values WBC 4.8 Th/cmm (4.8-10.8) 07/03/18 10:36 RBC 4.84 Mil/cmm (3.80-5.80) 07/03/18 10:36 Hgb 14.9 gm/dL (12-16) 07/03/18 10:36 Hct 44.4 % (41.0-60) 07/03/18 10:36 MCV 91.7 fl (80-99) 07/03/18 10:36 MCH 30.7 pg (27.0-31.0) 07/03/18 10:36 MCHC Differential 33.5 pg (28.0-36.0) 07/03/18 10:36 RDW 13.1 % (11.5-20.0) 07/03/18 10:36 Plt Count 154 Th/cmm (150-400) 07/03/18 10:36 MPV 7.5 fl 07/03/18 10:36 Neutrophils % 73.7 % (40.0-80.0) 07/03/18 10:36 Lymphocytes % 14.4 % (20.0-50.0) L 07/03/18 10:36 Monocytes % 10.3 % (2.0-10.0) H 07/03/18 10:36 Eosinophils % 1.6 % (0.0-5.0) 07/03/18 10:36 Basophils % 0.0 % (0.0-2.0) 07/03/18 10:36 Sodium 132 mEq/L (136-145) L 07/03/18 10:36 Potassium 3.7 mEq/L (3.5-5.1) 07/03/18 10:36 Chloride 99 mEq/L (98-107) 07/03/18 10:36 Carbon Dioxide 25.9 mEq/L (21.0-31.0) 07/03/18 10:36 Anion Gap 10.8 (7.0-16.0) 07/03/18 10:36 BUN 11 mg/dL (7-25) 07/03/18 10:36 Creatinine 0.6 mg/dL (0.7-1.3) L 07/03/18 10:36 Est GFR ( Amer) > 60.0 ml/min (>90) 07/03/18 10:36 Est GFR (Non-Af Amer) > 60.0 ml/min 07/03/18 10:36 BUN/Creatinine Ratio 18.3 07/03/18 10:36 Glucose 97 mg/dL (70-105) 07/03/18 10:36 Calcium 8.9 mg/dL (8.6-10.3) 07/03/18 10:36 Vancomycin Trough 17.9 ug/mL (5-10) H 07/05/18 07:53 - Physical Exam Vitals and I&O: Vital Signs Temp 97.4 F 07/05/18 08:00 Pulse 18 07/05/18 08:00 Resp 18 07/05/18 08:00 BP 97/59 07/05/18 08:00 Pulse Ox 98 07/05/18 08:00 Intake & Output 07/04/18 07/05/18 07/05/18 18:59 06:59 18:59 Intake Total 250 410 Output Total 1902 Balance 250 -1492 Weight (lbs) 70.76 kg 70.76 kg Intake: Intake, IV Amount 250 250 Vancomycin HCl 1.25 gm In 250 Sodium Chloride 0.9% 250 ml @ 165 mls/hr IV Q12H [facility] Rx#:[id number] Vancomycin HCl 1.25 gm In 250 Sodium Chloride 0.9% 250 ml @ 165 mls/hr IV Q24H [facility] Rx#:[id number] Oral 100 Other 60 Output: Urine 1900 Stool 2 Other: # Voids 2 # Bowel Movements 0 Stool Characteristics Soft Soft Formed Formed Weight Source Bedscale Bedscale Active Medications: Current Medications Acetaminophen (Tylenol Extra Strength) 500 mg PO Q4H PRN PRN Reason: Pain (Moderate) LEVEL 4-6 Stop: 08/30/18 21:46 Acetaminophen/Hydrocodone Bitart ([place] 5mg/325mg) 1 tab PO Q6H PRN PRN Reason: Severe Pain (LEVEL 7-10) Stop: 08/30/18 21:46 Aspirin (Ecotrin) 81 mg PO DAILY [facility] Stop: 08/31/18 08:59 Last Admin: 07/05/18 09:24 Dose: 81 mg Benzocaine/Menthol (Cepacol) 1 galen MM Q2HR PRN PRN Reason: Sore Throat Stop: 08/30/18 21:46 Bisacodyl (Dulcolax 10 Mg Supp) 10 mg RC DAILY PRN PRN Reason: Constipation, IF MOM INEFFECTI Stop: 08/30/18 21:46 Clindamycin HCl (Cleocin Hcl) 300 mg PO Q8HR [facility] Stop: 09/02/18 20:59 Last Admin: 07/05/18 04:43 Dose: Not Given Heparin Sodium (Porcine) (Heparin) 5,000 units SUBQ Q12HR [facility] Stop: 08/31/18 20:59 Last Admin: 07/05/18 09:25 Dose: 5,000 units Vancomycin HCl 1.25 gm/ Sodium (Chloride) 250 mls @ 165 mls/hr IV Q12H [facility] Stop: 09/02/18 20:59 Last Admin: 07/05/18 09:35 Dose: 166 mls/hr Lactobacillus Rhamnosus (Culturelle 15b) 1 each PO DAILY [facility] Stop: 09/02/18 08:59 Last Admin: 07/05/18 09:24 Dose: 1 each Levofloxacin (Levaquin) 500 mg PO DAILY [facility] Stop: 09/03/18 08:59 Last Admin: 07/05/18 09:24 Dose: 500 mg Lorazepam (Ativan) 1 mg IVP Q6HR PRN; Protocol PRN Reason: Agitation Stop: 08/31/18 20:13 Last Admin: 07/04/18 21:54 Dose: 1 mg Magnesium Hydroxide (Milk Of Magnesia) 30 ml PO HS PRN PRN Reason: Constipation Stop: 08/30/18 21:46 Miscellaneous (Vte Chemical Prophylaxis Screen/ Admission) 1 ea MC PRN PRN PRN Reason: PROTOCOL Stop: 08/31/18 11:44 Miscellaneous (Vancomycin Iv Per Pharmacy) 1 ea MC PRN [facility] Stop: 08/31/18 14:29 Miscellaneous (Probiotic Screen) 1 ea MC PRN PRN PRN Reason: PROTOCOL Stop: 09/01/18 11:29 Quetiapine Fumarate (Seroquel) 25 mg PO TID [facility]; Protocol Stop: 09/02/18 10:59 Last Admin: 07/05/18 09:24 Dose: 25 mg Senna (Senna) 8.6 mg PO HS [facility] Stop: 08/31/18 20:59 Last Admin: 07/04/18 21:40 Dose: 8.6 mg Simethicone (Gas Relief Drops) 20 mg PO Q6H PRN PRN Reason: Gas Stop: 08/30/18 22:22 Sodium Phosphate (Fleet Enema) 135 ml RC Q2D PRN PRN Reason: Constipation Stop: 08/30/18 21:46 - Procedures Procedures: Procedures Procedure Code Date SUPPLEMENT R INGUINAL REGION WITH SYNTH SUB, OPEN APPROACH [id number] 04/04/18
--- NOTE | 2018-07-05 12:49 | Infectious Disease Prog Note ---
Infectious Disease Subjective - Review of Systems Service Date: 07/05/18 Subjective: There is no new change. No fever. Infectious Disease Objective - Results Result Diagrams: 07/03/18 10:36 07/03/18 10:36 Recent Labs: Laboratory Last Values WBC 4.8 Th/cmm (4.8-10.8) 07/03/18 10:36 RBC 4.84 Mil/cmm (3.80-5.80) 07/03/18 10:36 Hgb 14.9 gm/dL (12-16) 07/03/18 10:36 Hct 44.4 % (41.0-60) 07/03/18 10:36 MCV 91.7 fl (80-99) 07/03/18 10:36 MCH 30.7 pg (27.0-31.0) 07/03/18 10:36 MCHC Differential 33.5 pg (28.0-36.0) 07/03/18 10:36 RDW 13.1 % (11.5-20.0) 07/03/18 10:36 Plt Count 154 Th/cmm (150-400) 07/03/18 10:36 MPV 7.5 fl 07/03/18 10:36 Neutrophils % 73.7 % (40.0-80.0) 07/03/18 10:36 Lymphocytes % 14.4 % (20.0-50.0) L 07/03/18 10:36 Monocytes % 10.3 % (2.0-10.0) H 07/03/18 10:36 Eosinophils % 1.6 % (0.0-5.0) 07/03/18 10:36 Basophils % 0.0 % (0.0-2.0) 07/03/18 10:36 Sodium 132 mEq/L (136-145) L 07/03/18 10:36 Potassium 3.7 mEq/L (3.5-5.1) 07/03/18 10:36 Chloride 99 mEq/L (98-107) 07/03/18 10:36 Carbon Dioxide 25.9 mEq/L (21.0-31.0) 07/03/18 10:36 Anion Gap 10.8 (7.0-16.0) 07/03/18 10:36 BUN 11 mg/dL (7-25) 07/03/18 10:36 Creatinine 0.6 mg/dL (0.7-1.3) L 07/03/18 10:36 Est GFR ( Amer) > 60.0 ml/min (>90) 07/03/18 10:36 Est GFR (Non-Af Amer) > 60.0 ml/min 07/03/18 10:36 BUN/Creatinine Ratio 18.3 07/03/18 10:36 Glucose 97 mg/dL (70-105) 07/03/18 10:36 Calcium 8.9 mg/dL (8.6-10.3) 07/03/18 10:36 Vancomycin Trough 17.9 ug/mL (5-10) H 07/05/18 07:53 - Physical Exam Vitals and I&O: Vital Signs Temp 97.6 F 07/05/18 09:00 Pulse 78 07/05/18 09:00 Resp 18 07/05/18 09:00 BP 112/56 07/05/18 09:00 Pulse Ox 98 07/05/18 08:00 Intake & Output 07/04/18 07/05/18 07/05/18 18:59 06:59 18:59 Intake Total 250 410 Output Total 1902 Balance 250 -1492 Weight (lbs) 70.76 kg 70.76 kg Intake: Intake, IV Amount 250 250 Vancomycin HCl 1.25 gm In 250 Sodium Chloride 0.9% 250 ml @ 165 mls/hr IV Q12H [facility] Rx#:[id number] Vancomycin HCl 1.25 gm In 250 Sodium Chloride 0.9% 250 ml @ 165 mls/hr IV Q24H [facility] Rx#:[id number] Oral 100 Other 60 Output: Urine 1900 Stool 2 Other: # Voids 2 # Bowel Movements 0 Stool Characteristics Soft Soft Formed Formed Weight Source Bedscale Bedscale Active Medications: Current Medications Acetaminophen (Tylenol Extra Strength) 500 mg PO Q4H PRN PRN Reason: Pain (Moderate) LEVEL 4-6 Stop: 08/30/18 21:46 Acetaminophen/Hydrocodone Bitart ([place] 5mg/325mg) 1 tab PO Q6H PRN PRN Reason: Severe Pain (LEVEL 7-10) Stop: 08/30/18 21:46 Aspirin (Ecotrin) 81 mg PO DAILY [facility] Stop: 08/31/18 08:59 Last Admin: 07/05/18 09:24 Dose: 81 mg Benzocaine/Menthol (Cepacol) 1 galen MM Q2HR PRN PRN Reason: Sore Throat Stop: 08/30/18 21:46 Bisacodyl (Dulcolax 10 Mg Supp) 10 mg RC DAILY PRN PRN Reason: Constipation, IF MOM INEFFECTI Stop: 08/30/18 21:46 Clindamycin HCl (Cleocin Hcl) 300 mg PO Q8HR [facility] Stop: 09/02/18 20:59 Last Admin: 07/05/18 04:43 Dose: Not Given Heparin Sodium (Porcine) (Heparin) 5,000 units SUBQ Q12HR [facility] Stop: 08/31/18 20:59 Last Admin: 07/05/18 09:25 Dose: 5,000 units Vancomycin HCl 1.25 gm/ Sodium (Chloride) 250 mls @ 165 mls/hr IV Q12H [facility] Stop: 09/02/18 20:59 Last Admin: 07/05/18 09:35 Dose: 166 mls/hr Lactobacillus Rhamnosus (Culturelle 15b) 1 each PO DAILY [facility] Stop: 09/02/18 08:59 Last Admin: 07/05/18 09:24 Dose: 1 each Levofloxacin (Levaquin) 500 mg PO DAILY [facility] Stop: 09/03/18 08:59 Last Admin: 07/05/18 09:24 Dose: 500 mg Lorazepam (Ativan) 1 mg IVP Q6HR PRN; Protocol PRN Reason: Agitation Stop: 08/31/18 20:13 Last Admin: 07/04/18 21:54 Dose: 1 mg Magnesium Hydroxide (Milk Of Magnesia) 30 ml PO HS PRN PRN Reason: Constipation Stop: 08/30/18 21:46 Miscellaneous (Vte Chemical Prophylaxis Screen/ Admission) 1 ea MC PRN PRN PRN Reason: PROTOCOL Stop: 08/31/18 11:44 Miscellaneous (Vancomycin Iv Per Pharmacy) 1 ea MC PRN [facility] Stop: 08/31/18 14:29 Miscellaneous (Probiotic Screen) 1 ea MC PRN PRN PRN Reason: PROTOCOL Stop: 09/01/18 11:29 Quetiapine Fumarate (Seroquel) 25 mg PO TID [facility]; Protocol Stop: 09/02/18 10:59 Last Admin: 07/05/18 09:24 Dose: 25 mg Senna (Senna) 8.6 mg PO HS [facility] Stop: 08/31/18 20:59 Last Admin: 07/04/18 21:40 Dose: 8.6 mg Simethicone (Gas Relief Drops) 20 mg PO Q6H PRN PRN Reason: Gas Stop: 08/30/18 22:22 Sodium Phosphate (Fleet Enema) 135 ml RC Q2D PRN PRN Reason: Constipation Stop: 08/30/18 21:46 General: no acute distress, well developed, well nourished HEENT: atraumatic, normocephalic, PERRLA Neck: supple, no thyromegaly Cardiovascular: S1S2, regular Lungs: clear to auscultation bilaterally, clear to percussion Abdomen: soft, no tender, no distended Extremities: no cyanosis, no clubbing, no edema Neurological: awake, alert, oriented, other (erythema almost resolved.) Skin: intact - Procedures Procedures: Procedures Procedure Code Date SUPPLEMENT R INGUINAL REGION WITH SYNTH SUB, OPEN APPROACH [id number] 04/04/18 Infectious Disease Assmt/Plan - Assessment Assessment: 1. Left leg cellulitis. improving. 2. Chronic obstructive pulmonary disease. 3. Dysphagia. - Plan Plan: change vanco iV and ceftriaxone to clinda for 5 more days.
[2018-07-05 19:57] VITALS: BP 130/73
[2018-07-06] MEDS: Lactobacillus Rhamnosus GG 15 Billion CFU CAP.SPRINK PO SCH (08:59)
--- NOTE | 2018-07-13 23:31 | Discharge Summary ---
DATE OF DISCHARGE: 07/06/2018 HOSPITAL COURSE: The patient was admitted at [facility] on 07/01. The patient was discharged on 07/06. The patient is from [facility]. Apparently, the patient was admitted because of right lower leg erythema, tenderness, staph infection, history of left hip replacement, osteoarthritis, recent hernia repair with gangrene, and history of recurrent falling and severe weakness. The patient was admitted on 07/01. The patient was treated for that with IV antibiotics. The patient improved and the patient was seen by ID doctor, Dr. Lorenzo and Psych doctor, Dr. Mendez. The patient was in stable condition on 07/06 with final diagnosis of right lower leg cellulitis improving, history of hip replacement, history of osteoarthritis, history of hernia repair, history of recurrent falling and severe weakness. The patient sent back for further the physical therapy and IV antibiotics for antibiotic therapy. MEDICATION: As noted in the reconciliation sheet. ACTIVITY: As tolerated. CONDITION AT THE TIME OF DISCHARGE: Stable. JOB# [id number]
== END 2018-07-06 17:56 | DRG 871 ==
LOC: MSI 21:14 → TELE 07-02 08:38 → MSI 07-04 10:55
PROVIDERS: ADMIT Internal Medicine; ATTEND Internal Medicine
DX: A41.9 Sepsis, unspecified organism (principal); G93.40 Encephalopathy, unspecified; L03.116 Cellulitis of left lower limb; J44.9 Chronic obstructive pulmonary disease, unspecified; R13.10 Dysphagia, unspecified; M19.90 Unspecified osteoarthritis, unspecified site; Z96.642 Presence of left artificial hip joint; F29 Unspecified psychosis not due to a substance or known physiological condition
CPT/HCPCS: 36415-UA; 71045-TC; 80048-TC; 80053-TC; 80202-TC; 81001-TC; 84443-TC; 84484-TC; 85025-TC; 85610-TC; 85730-TC; 93005; J0696; J1630; J1644; J2060; J3370; Z7610